=== PATIENT | male | born 1965 | race Caucasian/White ===

== ENCOUNTER 2018-01-31 09:43 | Emergency (ER) | payer OTHER, SELFPAY ==
[2018-01-31 09:49] VITALS: BP 159/101; PULSE 90; RESP 18; TEMP 36.6; O2SAT 98
--- NOTE | 2018-01-31 10:34 | ED.GENADUL_ITS ---
Disposition Clinical Impression: Laceration of right ring finger Disposition: HOME Condition: Stable Instructions: Finger Laceration (ED), Care For Your Stitches (ED) Additional Instructions: Watch for any signs of infection and return immediately if these occur otherwise keep the dressing on for 24-48 hours and after that keep wound clean and dry with just mild soap and water. It is encouraged that you wear the splint for the next 7 days to prohibit additional tension being placed on the wound and stitches. You may return to the emergency department 7-10 days for suture removal. Referrals: [facility] Emergency Dept. [Outside] (Return to the emergency department 7-10 days for suture removal.) Forms: Work Release Medical Decision Making - Medical Decision Making Patient presenting to the emergency department for laceration to the dorsal aspect of the ring finger. There is a 1.2 cm laceration with moderate amount of bleeding that corresponds with the DIP. Patient has full range of motion and strength in the extremity so doubt any tendon injury. Patient gave verbal consent for wound repair and digital block. Wound was explored to base in bloodless field and no evidence of foreign body was noted but moderate amount of bleeding so suspect venous injury. Finger tourniquet was applied prior to evaluating the wound. Wound was closed with 4-0 Prolene and 3 simple interrupted sutures were used to close the wound. Appropriate hemostasis was achieved using this technique. Finger tourniquet removed and continued hemostasis was achieved. Patient's tetanus was up-to-date and patient tolerated procedure well. Patient was placed in a foam metal splint to prohibit flexion of the PIP of the affected digit to reduce tension on the stitches. Patient encouraged to return in's 7-10 days for suture removal. After discussion of diagnosis and plan of care with patient patient agreed and stated no further needs, questions, or concerns at this time. History of Present Illness - General Chief complaint: Laceration Stated complaint: RT FINGER LACERATION Time Seen by Provider: 01/31/18 10:32 Source: patient, RN notes reviewed Mode of arrival: ambulatory Limitations: no limitations - History of Present Illness Initial comments: Patient reports just prior to arrival he was moving her toes that had metal strapping on it and accidentally lacerated the first knuckle on the right ring finger. Patient denies any other injury or trauma. Onset/Timin -: minutes(s) Location: right, upper extremity Severity scale (1-10): 2 Quality: aching Consistency: constant Improves with: none Worsens with: none Associated Symptoms: denies other symptoms Treatments Prior to Arrival: none - Related Data Unknown [No Known Home Meds] 08/04/17 Allergies Allergy/AdvReac Type Severity Reaction Status Date / Time codeine AdvReac Unknown from Unverified 01/31/18 09:52 childhood Review of Systems Constitutional: no symptoms reported Respiratory: no symptoms reported Cardiovascular: denies: syncope Skin: as per HPI Comment: All other systems reviewed and negative Past Medical History - Past Medical History Medical history: GERD Surgical history: other (Back surgery) Family history: CAD/LA, cancer, diabetes - Social History Smoking status: current everyday smoker Alcohol use: none Drug use: none Living Situation: lives with family General Exam - General Limitations: no limitations General appearance: alert, in no apparent distress - Head Head exam: Present: atraumatic - Respiratory Respiratory exam: Absent: respiratory distress - Expanded Upper Extremity Exam Right Hand Wrist exam: Present: full ROM, laceration (Patient has approximately a 1.2 cm flap laceration to the dorsal aspect of the PIP with moderate amount of bleeding.). Absent: deformity Neurosensory exam: Present: 2-point discrimination Vascular: Present: normal capillary refill - Neurological Exam Neurological exam: Present: alert, oriented X3, normal gait. Absent: altered Course Vital Signs - 24 hr 01/31/18 09:49 Temperature 36.6 C Pulse 90 Respiratory 18 Rate Blood Pressure 159/101 Pulse Oximetry 98 Procedures - Laceration Repair Consent Obtained: Verbal consent Copious Irrigation performed: Yes Laceration Length (cm): 1.2 Laceration Depth: Subcutaneous Bleeding Type/Amount: Moderate Complexity: Simple Anesthetic: Digital Block, Lidocaine 2% Amount of Anesthetic (mls): 4 Material: Proline Suture Size: 4-0 Suture Number: 3
== END 2018-01-31 10:54 | disposition home or self-care (01) ==
PROVIDERS: Emergency Provider Physician Assistant; PCP Family Medicine
DX: S61.214A Laceration without foreign body of right ring finger without damage to nail, initial encounter (principal); W26.8XXA Contact with other sharp object(s), not elsewhere classified, initial encounter
CPT/HCPCS: 12001

== ENCOUNTER 2018-11-28 23:31 | Emergency (ER) | payer OTHER, SELFPAY ==
--- NOTE | 2018-11-28 00:15 | DI.CT_ITS ---
SYMPTOMS/DIAGNOSIS: RT FLANK PAIN RENAL COLIC CT: Comparison 07/21/17. There is patient motion artifact. Lack of IV contrast does limit evaluation of the abdominal and pelvic organs. The unenhanced liver, spleen, pancreas, gallbladder, bile ducts and adrenal glands are unremarkable. There is no evidence of nephrolithiasis, ureterolithiasis or obstructive uropathy. The urinary bladder is intact. The reproductive organs are unremarkable. The bowel shows no evidence of obstruction or inflammation. There is a normal appendix present. The aorta is of normal caliber. No significant abdominal or pelvic adenopathy, ascites or pneumoperitoneum is present. Incidental note is made of a retroaortic left renal vein. Post surgical changes and degenerative changes are seen in the spine. IMPRESSION: No acute abnormality. No evidence of nephrolithiasis or obstructive uropathy.
[2018-11-28 23:34] VITALS: BP 146/93; PULSE 87; RESP 20; TEMP 36.6; O2SAT 96
--- NOTE | 2018-11-28 23:49 | ED.GENADUL_ITS ---
Discharge Plan Disposition Patient Disposition: HOME Condition: Stable Discharge Details Chief Complaint: Nk/Back Pain Clinical Impression: Back pain, Flank pain Primary Care Provider: Raffy Aguirre ED Provider: Oswald Brennan Home Meds and New Rx's Prescriptions: New diazepam [Valium] 5 mg tablet 5 mg PO TID-QID PRN (Reason: muscle spasm) Qty: 20 RF: 0 Continued calcium carbonate 400 mg Tablet,Chewable 400 mg PO TID PRNRF: 0 ibuprofen 600 mg Tablet 600 mg PO TID PRNRF: 0 Discharge Instructions Instructions: Diazepam (By mouth), Back Pain (ED) Additional Instructions: follow up with your primary care provider within 1-2 weeks if you have severe worsening symptoms or new symptoms such as high fevers or difficulty urinating return to the emergency department Medical Decision Making 53 yo male with hx of prior back pain and kindey stones comes in with chief complaint of mid to lower back pain starting on Tuesday when he woke up, denies any known trauma or falls. Has pain throughout the lumbar region bilaterally, no midline pain or stepoffs, no saddle anesthesia, no weakness on exam or sensation deficits so doubt cauda equina and denies ivdu and no fevers/chills so doubt sea at this time. I suspect muscle spasm/back strain but will image to eval for kidney stone. Has no abdominal tenderness on exam so doubt appendicitis or other surgical pathology. Normal vascular exam so doubt aortic dissection pt remains stable, feels better after toradol and valium, labs and imaging unremarkable. Still reassuring neuro exam. Suspect musculoskeletal pain, will d/c and have him f/u with his pcp, return precautions given Differential Diagnosis muscle spasm, back strain, kidney stone Medical Records Medical records reviewed: Yes I reviewed the patient's medical records. Imaging Data Radiologic Study: Attestation: I personally reviewed and interpreted this imaging study as follows: Imaging: CT Scan My impression: no acute findings Radiologist's impression: IMPRESSION: 1. No hydronephrosis. No renal ureteral calculi. Please note the lack of IV contrast limits evaluation of the renal parenchyma for pyelonephritis. 2. Normal appendix. 3. No evidence for bowel obstruction or bowel wall thickening. Lab Data Lab results reviewed: Yes I reviewed the patient's lab results. HPI General Mode of arrival: ambulatory . Date/Time Provider Initiated Documentation: 11/28/18 23:31 . Limitations to Documentation: no limitations . Information obtained by: patient . History of Present Illness 53 year old M presents to the emergency department with the chief complaint of back pain, described as moderate, Quality is described as stabbing and aching, and is localized to the back. Patient abdomen. and it has been constant. No relieving factors improve symptom(s), No exacerbating factors reported . Patient notes no other symptoms.. Patient did receive the following treatments prior to arrival, NSAID Related Data Home Medications Medication Instructions Recorded Confirmed calcium carbonate 400 mg PO TID PRN 11/28/18 11/28/18 ibuprofen 600 mg PO TID PRN 11/28/18 11/28/18 diazepam [Valium] 5 mg PO TID-QID PRN #20 tab 11/29/18 Previous Rx's Medication Instructions Recorded diazepam [Valium] 5 mg PO TID-QID PRN #20 tab 11/29/18 Allergies Allergy/AdvReac Type Severity Reaction Status Date / Time codeine AdvReac Unknown from Unverified 11/28/18 23:38 childhood Review of Systems Review of Systems All systems reviewed & are unremarkable except as noted in HPI and below Constitutional Denies chills and Denies fever(s) Cardiovascular Denies chest pain and Denies dyspnea Respiratory Denies cough and Denies dyspnea Gastrointestinal Denies nausea and Denies vomiting Genitourinary Denies dysuria Integumentary/Breasts Denies rash PFSH Surgical History BACK SURGERY Family History Mother No problems noted. Father No problems noted. Sister No problems noted. Brother No problems noted. Grandfather Heart disease Grandfather No problems noted. Grandmother No problems noted. Grandmother Diabetes Social History Smoking/Tobacco Use Status: Current every day Tobacco Type: cigarettes Alcohol Intake: never Drug use: Never Substance use type: does not use Do you feel safe in your relationship?: Yes Exam Const General: no acute distress Orientation: alert HENMT Head: normal to inspection Ears: external ears normal General nose exam: external nose normal Mouth: moist mucous membranes Eyes General: appearance normal, both eyes and all related structures Neck Neck: normal visual inspection Resp Effort & Inspection: normal respiratory effort and able to speak in complete sentences Cardio Rate: regular rate Back/Spine/Pelvis Back: no CVA tenderness Skin General skin exam: no rashes or lesions noted Neuro General: alert and oriented x3 Extrem General: normal to inspection Psych Mental Status: mental status grossly normal
[2018-11-28] MEDS: Normal Saline Flush 10 ML SYR IVP (23:50)
[2018-11-28] MEDS: Ketorolac 15 MG/ML VIAL IVP (23:50)
[2018-11-29] VITALS (8 sets, daily range): BP systolic 132–135; BP diastolic 82–92; PULSE 78–88; RESP 12–25; TEMP 36.2; O2SAT 92–94
[2018-11-29 00:02] LABS: Abs Immature Grans 0.03 k/cumm (0.0-0.09); Absolute Basophil Count 0.04 k/cumm (0.0-0.2); Absolute Eosinophil Count 0.42 k/cumm (0.0-0.7); Absolute Lymphocyte Count 2.73 k/cumm (1.2-3.4); Absolute Monocyte Count 0.66 k/cumm (0.11-0.7); Absolute Neutrophil Count 5.06 k/cumm (1.2-6.7); Basophils % 0.4; Eosinophils % 4.7; HCT 44.5 % (40.0-50.0); HGB 15.4 g/dL (13.5-17.5); Immature Grans % 0.3; Lymphocytes % 30.5; Mean Corp. HGB Concentration 34.6 g/dL (32.0-36.0); Mean Corpuscular Hemoglobin 31.2 pg (27.0-33.0); Mean Corpuscular Volume 90.3 fL (80-95); Mean Platelet Volume 12.3 fL (8.0-11.0); Monocytes % 7.4; Neutrophils % 56.7; Platelet Count 145 x1000/uL (130-400); RBC 4.93 m/cumm (4.50-6.00); RBC Distribution Width 13.8 % (11.8-14.1); White Blood Cell Count 8.94 k/cumm (4.4-10.8)
[2018-11-29 00:15] LABS: ALT 28 U/L (12-78); AST 13 U/L (15-37); Albumin 3.8 g/dL (3.4-5.0); Alkaline Phosphatase 73 U/L (46-116); Anion Gap 9.4 mmol/L (3-11); BUN 16 mg/dL (7-18); Bilirubin, Total 0.3 mg/dL (0.2-1.0); CO2 26.6 mmol/L (21.0-32.0); CREATININE 1.24 mg/dL (0.70-1.30); Calcium 8.7 mg/dL (8.5-10.1); Chloride 104 mmol/L (98-107); Glucose 129 mg/dL (70-100); Lipase 73 U/L (73-393); Magnesium 2.2 mg/dL (1.8-2.4); Potassium 3.8 mmol/L (3.5-5.1); Sodium 140 mmol/L (136-145); Total Protein 7.5 g/dL (6.4-8.2)
[2018-11-29 00:25] LABS: PTT Activated 26.6 sec (21.0-31.4); Prothrombin Time 9.5 sec (9.3-11.0)
[2018-11-29] MEDS: diazePAM 10 MG/2 ML SYR 5 MG IVP (00:30)
[2018-11-29] MEDS: Normal Saline Flush 10 ML SYR IVP (00:31)
--- NOTE | 2018-11-29 01:03 | DI.VRAD_ITS ---
EXAM: CT Abdomen and Pelvis Without Contrast EXAM DATE/TIME: 11/28/2018 11:36 PM CLINICAL HISTORY: 53 years old, male; Abdominal pain; Right; Prior surgery; Surgery date: 6+ months; Surgery type: Back surgery; Patient HX: R flank pain TECHNIQUE: Imaging protocol: Axial computed tomography images of the abdomen and pelvis without contrast. Coronal and sagittal reformatted images were created and reviewed. Radiation optimization: All CT scans at this facility use at least one of these dose optimization techniques: automated exposure control; mA and/or kV adjustment per patient size (includes targeted exams where dose is matched to clinical indication); or iterative reconstruction. COMPARISON: CT ABD/PELVIS WO W CONTRAST 07/21/2017 10:05 AM FINDINGS: There is minimal atelectasis within the lung bases. There are degenerative changes and postop changes of the spine. There are degenerative changes of both hips. There is no liver mass. There is no intrahepatic biliary dilatation. No gallstones are seen within the gallbladder. The pancreas is unremarkable. The spleen is unremarkable. There is no adrenal mass. There is no hydronephrosis. There are no renal calculi. There is mild symmetric perinephric stranding. There is no renal mass. The ureters are normal in caliber. No calculi are seen along the course of the ureters. The aorta is normal in caliber. The IVC is normal in caliber. Small retroperitoneal lymph nodes are present. There is no mesenteric adenopathy. The stomach is unremarkable. The small bowel loops in the upper abdomen are nondistended with no bowel wall thickening. Feces is seen throughout the colon. There is no thickening of the wall of the ascending, transverse or descending colons. Within the pelvis: A normal appendix is seen within the right lower quadrant. The bladder is unremarkable. The prostate gland and seminal vesicles are normal. There is no free fluid within the pelvis. There is no inguinal adenopathy. There is no pelvic adenopathy. The bowel loops within the pelvis are unremarkable. IMPRESSION: 1. No hydronephrosis. No renal ureteral calculi. Please note the lack of IV contrast limits evaluation of the renal parenchyma for pyelonephritis. 2. Normal appendix. 3. No evidence for bowel obstruction or bowel wall thickening. Dictated and Authenticated by: Jose Alejandro Ivory MD. Ordering:MELLO Akers MD
[2018-11-29] MEDS: diazePAM 5 MG TAB 10 MG PO (01:07)
== END 2018-11-29 01:12 | disposition home or self-care (01) ==
LOC: ER 11-29 01:27
PROVIDERS: Emergency Provider Emergency Medicine; PCP Family Medicine
DX: R10.9 Unspecified abdominal pain (principal); M54.5 Low back pain; Z87.440 Personal history of urinary (tract) infections
CPT/HCPCS: 36415; 80053; 83690; 96374; 96375; 99284; 74176; 83735; 85025; 85610; 85730; J1885; J3360

== ENCOUNTER 2020-01-02 08:55 | Emergency (ER) | payer OTHER, SELFPAY ==
[2020-01-02 09:01] VITALS: BP 165/88; PULSE 89; RESP 16; TEMP 36.7; O2SAT 98
--- NOTE | 2020-01-02 09:12 | ED.GENADUL_ITS ---
Discharge Plan Disposition Patient Disposition: HOME Condition: Stable Discharge Details Chief Complaint: Nk/Back Pain Clinical Impression: Strain of muscle and tendon of back wall of thorax, initial encounter Primary Care Provider: Raffy Aguirre ED Provider: Andrez Peace Home Meds and New Rx's Prescriptions: Continued calcium carbonate 400 mg Tablet,Chewable 400 mg PO TID PRNRF: 0 Discharge Instructions Instructions: Muscle Strain (ED) Additional Instructions: Remove Lidoderm patch in 12 hours time. May apply ice and/or heat to area as needed for comfort. No further ibuprofen today. May use Tylenol if needed for pain. May use the provided Flexeril as needed for spasm and discomfort. No alcohol or driving with this medication. Medical Decision Making 54-year-old male states he had acrid reflux while asleep early in bed this morning and awoke with a spasmodic cough. He states this does happen to him intermittently. While coughing he felt a pull in his right posterior back and is had pain since that time. No resting shortness of breath. He was not injured in any other way and has otherwise recently been well. He arrives with slight hypertension 165/88 but otherwise normal vital signs. He is tender in the posterior thoracic wall. Differential diagnosis includes muscle strain, cartilaginous disruption, pneumothorax or ruptured bleb, fractured rib. Patient given oral analgesia with Mylanta and referred for x- ray. No evidence of rib fracture, pneumothorax, or pleural effusion. Patient re quested Toradol which I feel is very reasonable and appropriate and was given an IM injection. We also try Flexeril x1 at home. HPI General Mode of arrival: ambulatory . Date/Time Provider Initiated Documentation: 01/02/20 08:56 . Limitations to Documentation: no limitations . Information obtained by: patient . History of Present Illness 54 year old M presents to the emergency department with the chief complaint of Right posterior chest wall pain after coughing fit, described as moderate, Quality is described as dull and constant, and is localized to the chest and right. Patient reports radiation to back. Patient started experiencing this hour(s) and it has been constant. No relieving factors improve symptom(s), Movement worsens symptoms . Patient notes denies fever/chills, loss of appetite and shortness of breath. Patient did receive the following treatments prior to arrival, none Related Data Home Medications Medication Instructions Recorded Confirmed calcium carbonate 400 mg PO TID PRN 11/28/18 01/02/20 Allergies Allergy/AdvReac Type Severity Reaction Status Date / Time codeine AdvReac Unknown from Unverified 01/02/20 09:04 childhood General Stated Complaint: Nk/Back Pain AUGUST: 3 Review of Systems Narrative: No shortness of breath. States he has had episodes of reflux in the past that have caused a spasmodic cough. 6 systems reviewed and otherwise negative [facility] BACK SURGERY 1999; [facility] Family History Mother No problems noted. Father No problems noted. Sister No problems noted. Brother No problems noted. Grandfather Heart disease Grandfather No problems noted. Grandmother No problems noted. Grandmother Diabetes Social History Smoking/Tobacco Use Status: Current every day Tobacco Type: cigarettes Alcohol Intake: never Drug use: Never Substance use type: does not use Do you feel safe in your relationship?: Yes Exam Narrative Exam Narrative: GEN: awake, alert, oriented 3. Pleasant, well groomed, interactive. HEAD: Normocephalic, atraumatic ENT: Mucous membranes moist, oropharynx unremarkable, External ear exam unremarkable EYES: PERRL, EOMI NECK: Full ROM, no BERTO, no menigismus CHEST/RESP: Nontender, clear to auscultation bilateral, no wheeze/rhonchi/rales CARDIOVASCULAR: RRR, no murmur, rub angle. 2+ Rad pulse bilateral ABDOMEN: Soft, nontender, no mass. +Bowel sounds. Back: Right posterior thoracic cage level tenderness to palpation. No crepitus. EXT: Full ROM, no edema, no rash Neuro: Grossly normal neurologic exam, conversant, interactive. Psych: Speech fluent, thoughts congruent, affect normal Course Vital Signs Vital signs: Vital Signs Temperature 36.7 C 01/02/20 09:01 Pulse 89 01/02/20 09:01 Respiratory Rate 16 01/02/20 09:01 Blood Pressure 165/88 H 01/02/20 09:01 Pulse Oximetry 98 01/02/20 09:01 Temperature 36.7 C 01/02/20 09:01 Temperature Source Skin 01/02/20 09:01 Pulse 89 01/02/20 09:01 Respiratory Rate 16 01/02/20 09:01 Respiratory Effort Non-Labored 01/02/20 09:01 Blood Pressure 165/88 H 01/02/20 09:01 Blood Pressure Position Sitting 01/02/20 09:01 Pulse Oximetry 98 01/02/20 09:01 Oxygen Delivery Method Room Air 01/02/20 09:01 Oxygen Flow Rate 0 01/02/20 09:01 Pain Level 5 01/02/20 09:08
[2020-01-02] MEDS: Ibuprofen 800 MG TAB PO (09:17)
[2020-01-02] MEDS: Mylanta Suspension 30 ML CUP PO (09:17)
--- NOTE | 2020-01-02 09:35 | DI.RAD_ITS ---
EXAM: XR RIBS RT W PA LAT CHEST CLINICAL HISTORY: lower pos pain after cough fit TECHNIQUE: COMPARISON: CR CHEST 2 VIEWS PA,LAT from 06/27/[address] renal colic wo from 11/29/2018 FINDINGS: PA and lateral views of the chest and 5 additional views of ribs were obtained. The heart is not enl arged and the lungs are clear. No pneumothorax or pleural effusion. No rib fracture identified. Note is made of Villatoro rods at the L4-5 level bilaterally. IMPRESSION: No rib fracture, pneumothorax, or pleural effusion.
[2020-01-02] MEDS: Lidocaine 5% Patch 1 PATCH TP (09:37)
[2020-01-02] MEDS: Ketorolac 30 MG/ML VIAL IM (09:52)
[2020-01-02] MEDS: Cyclobenzaprine 10 MG TAB, 3 TABS/BTL PO (09:53)
== END 2020-01-02 10:01 | disposition home or self-care (01) ==
PROVIDERS: Emergency Provider Emergency Medicine; PCP Family Medicine
DX: S29.012A Strain of muscle and tendon of back wall of thorax, initial encounter (principal); X50.9XXA Other and unspecified overexertion or strenuous movements or postures, initial encounter; K21.9 Gastro-esophageal reflux disease without esophagitis
CPT/HCPCS: 96372; 99284; 71046; 71100; J1885

== ENCOUNTER 2020-04-01 15:37 | Outpatient (REF) | payer OTHER, SELFPAY ==
[2020-04-01 21:16] LABS: HGB 15.8 g/dL (13.5-17.5); MCH 30.5 pg (27.0-33.0); MCHC 32.9 % (32.0-36.0); MCV 92.7 fL (80-95); MPV 12.6 fL (8.0-11.0); Platelet Count 150 10^3/uL (130-400); RBC 5.18 10^6/uL (4.36-5.78); RDW 13.2 % (11.8-14.1)
[2020-04-01 22:37] LABS: Calculated LDL 162 mg/dL (<100); Cholesterol 240 mg/dL (<200); Glucose 100 mg/dL (74-106); HDL Cholesterol 32 mg/dL (40-60); Triglyceride 230 mg/dL (<150)
== END 2020-04-01 15:57 ==
LOC: LBN 15:37
PROVIDERS: PCP Family Medicine; Visit Provider Family Medicine
DX: E78.5 Hyperlipidemia, unspecified (principal); R73.9 Hyperglycemia, unspecified
CPT/HCPCS: 80061; 82947; 85027

== ENCOUNTER 2023-03-23 00:54 | Emergency (ER) | payer BC, SELFPAY ==
[2023-03-23 00:57] VITALS: BP 165/89; PULSE 90; RESP 16; TEMP 36.9; O2SAT 99
--- NOTE | 2023-03-23 01:00 | DI.CT_ITS ---
Exam(s) CT ABDOMEN PELVIS W EXAM: CT ABDOMEN PELVIS W CLINICAL HISTORY: llq pain rectal pain, ?diverticulitis vs abscess. TECHNIQUE: Imaging Protocol: Axial computed tomography images with coronal and sagittal reformatted images were created and reviewed CONTRAST MATERIAL: Intravenous: Omnipaque-350 100cc Oral: None COMPARISON: CT CT renal colic wo from 11/29/2018 FINDINGS: VISUALIZED LUNG BASES: No nodules nor pleural effusions evident. ABDOMEN: There is no ascites. LIVER: There are no focal hepatic lesions evident. No dilated intrahepatic ducts. GALLBLADDER/BILIARY: No obvious gallbladder pathology. CBD is not dilated. PANCREAS: No evidence of pancreatic mass nor dilatation of the pancreatic duct. SPLEEN: Spleen is not enlarged. No obvious intrasplenic lesions. Splenic and portal veins are paten t. ADRENALS: Unchanged thickening of both adrenal glands and small unchanged nodule at the genu of the l eft adrenal gland measuring 1 cm probable adenoma. KIDNEYS:Small benign cyst in the lateral cortex of the left kidney measuring less than 1 cm. Not req uiring further workup. No other focal findings in the left kidney. Right renal pelvis and infundibu lar slightly prominent. Right ureter is not dilated. No calculi seen in either ureter. No calculi nor masses seen in the urinary bladder. Prostate size normal. No solid renal masses. No calculi no r hydronephrosis.. ABDOMINAL AORTA: Atherosclerotic. There is a fusiform infrarenal abdominal aortic aneurysm which exh ibits maximum diameter of 3.4 cm, unchanged. A at the same level as the aneurysm there is a retroaor tic left renal vein again noted. No aneurysms of the iliac vessels evident. LYMPH NODES:There is no retroperitoneal nor paraaortic adenopathy. ABDOMINAL WALL: No evidence of significant anterior abdominal wall nor inguinal hernia. GI: There is no evidence of bowel obstruction, free air, nor abscess. PELVIS: GI: No evidence of appendicitis.No evidence of sigmoid diverticulitis. LYMPH NODES: There is no intrapelvic nor inguinal adenopathy. REPRODUCTIVE: Prostate not enlarged. URINARY BLADDER: No calculi nor obvious masses evident OSSEOUS: There is fusion hardware in the lower lumbar spine levels L4-S1. Secured by intra pedicular screws. No fractures. No osseous lesions. No evidence of osteomyelitis. IMPRESSION: 1. No obvious acute findings in the abdomen and pelvis. 2. Slight prominence of the right renal pelvis and infundibulum I without evidence of an obvious calc ulus in the nondilated right ureter nor evidence of nephrolithiasis. Also no abnormal enhancement of the kidney nor of the renal pelvis to suggest obvious inflammatory pr ocess. No perinephric streaking. 3. Small 1 cm unchanged left adrenal nodule which is probably an incidental adenoma. Slight thickeni ng of the limbs of both adrenal glands is also unchanged. 4. Fusiform abdominal aortic aneurysm again noted with maximum diameter 3.4 cm. There is a retroaort ic left renal vein noted just behind the aneurysm level. RADIATION DOSE DELIVERED: 1,550.42mGy.cm Total DLP DATA REPOSITORY: All CT scans at this facility are submitted to the National Radiology Data Registry (NRDR) Dose Index Registry (DIR) with the [employer] (A[employer]). RADIATION OPTIMIZATION: All CT scans at this facility use at least one of these dose optimization te chniques: automated exposure control; mA and/or kV adjustment per patient size (includes targeted exa ms where dose is matched to clinical indication); or iterative reconstruction.
--- NOTE | 2023-03-23 01:14 | ED.GENADUL_ITS ---
Discharge Plan Disposition Patient Disposition: Home Condition: Stable Discharge Details Clinical Impression: External hemorrhoid, Abdominal pain Primary Care Provider: Raffy Aguirre ED Provider: Oswald Brennan Home Meds and New Rx's Prescriptions: New lidocaine HCl-hydrocortison ac 3-0.5 % cream 1 applic AK BID PRN (Reason: hemorrhoids) Qty: 98 0RF Continued docusate sodium [Colace] 100 mg capsule 100 mg PO BID Qty: 180 3RF calcium carbonate 400 mg Tablet,Chewable 400 mg PO TID PRN Discharge Instructions Instructions: Hemorrhoids (ED) Additional Instructions: I placed you on the follow up list to see general surgery, you should be contacted with an appointment you can take miralax with the colace, follow dosing instructions on the packaging if you feel more ill, have severe worsening pain or new symptoms such as fevers or vomiting return to the emergency department Medical Decision Making 58 yo male who was diagnosed with an external hemorrhoid in January and placed on docusate, stopped taking this about a week ago, comes in with cc of rectal pain for several days and constipation. HAs had intermittent lower abdominal pain as well primarily with bowel movements. He denies chest pain, dyspnea, vomiting, fevers. He is stable on arrival and appears well. HAs mild tenderness in the llq with deep palpation, no guarding or distention and no tenderness elsewhere. HE does have an approximately 5mm nonthrombosed hemorrhoid at the 5 oclock position, no bleeding and guiac negative stool. Suspect the hemorrhoid and constipation are the cause of his symptoms, will obtain cbc, cmp and lipase and ct abdomen to primarily evaluate for diverticulitis as well. labs and imaging unremarkable, pt stable, will have him continue the colace and can also use miralax, will place on the follow up list to see general surgery. No abdominal tenderness on exam. STable for d/c, return precautions given. Differential Diagnosis Differential Diagnosis: diverticulitis, hemorrhoid, abscess Medical Records Medical records reviewed: Yes I reviewed the patient's medical records. Lab Data Lab results reviewed: Yes I reviewed the patient's lab results. HPI General Mode of arrival: ambulatory . Date/Time Provider Initiated Documentation: 03/23/23 00:54 . Limitations to Documentation: no limitations . Information obtained by: patient . History of Present Illness 58 year old M presents to the emergency department with the chief complaint of rectal pain, described as moderate, Quality is described as aching, Patient started experiencing this day(s) (3) and it has been constant. No relieving factors improve symptom(s), No exacerbating factors reported . Related Data Home Medications Medication Instructions Recorded Confirmed calcium carbonate 160 mg calcium 400 mg PO TID PRN 11/28/18 03/23/23 (400 mg) chewable tablet docusate sodium 100 mg capsule 100 mg PO BID #180 caps 01/28/23 03/23/23 (Colace) lidocaine 3 %-hydrocortisone 0.5 % 1 applic AK BID PRN hemorrhoids 03/23/23 rectal cream #98 grams Previous Rx's Medication Instructions Recorded docusate sodium 100 mg capsule 100 mg PO BID #180 caps 01/28/23 (Colace) lidocaine 3 %-hydrocortisone 0.5 % 1 applic AK BID PRN hemorrhoids 03/23/23 rectal cream #98 grams Allergies Allergy/AdvReac Type Severity Reaction Status Date / Time codeine AdvReac Unknown from Verified 03/23/23 01:04 childhood General Stated Complaint: Urinary AUGUST: 3 Review of Systems All systems reviewed & are unremarkable except as noted in HPI and below Constitutional Constitutional: Denies chills, Denies fever(s) and Denies weakness Cardiovascular Cardiovascular: Denies chest pain and Denies dyspnea Respiratory Respiratory: Denies cough and Denies dyspnea Gastrointestinal Gastrointestinal: Denies nausea and Denies vomiting Integumentary/Breasts Skin/Breast: Denies rash Neurologic Neurologic: Denies weakness PFSH All Active Problems (Updated 03/23/23 @ 02:45 by Oswald Brennan MD) External hemorrhoid (Acute) Abdominal pain (Acute) Sensorineural hearing loss of both ears (Acute) Tinnitus (Acute) Viral URI (Acute) Tobacco abuse (Acute) Erythrocytosis (Acute) Otitis media, serous, TM rupture (Acute) Hyperlipidemia with target LDL less than 130 (Acute) Calculus of left kidney (Acute 07/21/17) Microscopic hematuria (Acute 07/27/17) 08/04/17; NEGATIVE CYSTOSCOPY;[facility] Reflux esophagitis (Acute) EGD 11/25/14 Surgical History BACK SURGERY 1999; [facility] Family History Mother No problems noted. Father No problems noted. Sister No problems noted. Brother No problems noted. Grandfather Heart disease Grandfather No problems noted. Grandmother No problems noted. Grandmother Diabetes Social History Smoking/Tobacco Use Status: Current every day Tobacco Type: cigarettes Smoking risk assessment performed?: Yes Alcohol Intake: never Drug use: Never Substance use type: does not use Do you feel safe in your relationship?: Yes Exam Const General: no acute distress Orientation: alert HENMT Head: normal to inspection Ears: external ears normal General nose exam: external nose normal Mouth: moist mucous membranes Eyes General: appearance normal, both eyes and all related structures Neck Neck: normal visual inspection Resp Effort & Inspection: normal respiratory effort and able to speak in complete sentences Cardio Rate: regular rate GI Palpation: soft and tender Skin General skin exam: no rashes or lesions noted Neuro General: patient alert and patient oriented x3 Extrem General: normal to inspection Psych Mental Status: mental status grossly normal Course Vital Signs Vital signs: Vital Signs Temperature 36.9 C 03/23/23 00:57 Pulse 90 03/23/23 00:57 Respiratory Rate 16 03/23/23 00:57 Blood Pressure 165/89 H 03/23/23 00:57 Pulse Oximetry 99 03/23/23 00:57 Temperature 36.9 C 03/23/23 00:57 Pulse 90 03/23/23 00:57 Respiratory Rate 16 03/23/23 00:57 Respiratory Effort Normal 03/23/23 01:06 Blood Pressure 165/89 H 03/23/23 00:57 Pulse Oximetry 99 03/23/23 00:57 Oxygen Delivery Method Room Air 03/23/23 00:57 Oxygen Flow Rate 0 03/23/23 00:57 Pain Level 8 03/23/23 00:57
[2023-03-23 01:20] LABS: Abs Immature Grans 0.06 10^3/uL (0.0-0.06); Absolute Basophil Count 0.06 10^3/uL (0.0-0.2); Absolute Eosinophil Count 0.18 10^3/uL (0.0-0.7); Absolute Lymphocyte Count 1.98 10^3/uL (1.2-3.4); Absolute Neutrophil Count 9.27 10^3/uL (1.2-6.7); Basophils % 0.5; Eosinophils % 1.4; HCT 44.4 % (40.0-50.0); HGB 15.1 g/dL (13.5-17.5); Immature Grans % 0.5; Lymphocytes % 15.8; MCH 30.6 pg (27.0-33.0); MCV 90 fL (80-95); Neutrophils % 73.8; Platelet Count 184 10^3/uL (130-400); RBC 4.94 10^6/uL (4.36-5.78); RDW-SD 42.6 fL; WBC 12.56 10^3/uL (4.4-10.8)
[2023-03-23] MEDS: Lidocaine 4% Cream 5 GM TUBE TP (01:35)
[2023-03-23] MEDS: Docusate Sodium 100 MG CAP PO (01:35)
[2023-03-23 01:38] LABS: ALT 23 U/L (16-63); AST 15 U/L (15-37); Albumin 3.7 g/dL (3.4-5.0); Alkaline Phosphatase 70 U/L (46-116); Anion Gap 8.6 mmol/L (3-11); BUN 13 mg/dL (7-18); Bilirubin, Total 0.5 mg/dL (0.2-1.0); CO2 24.4 mmol/L (21.0-32.0); CREATININE 1.1 mg/dL (0.70-1.30); Calcium 8.7 mg/dL (8.5-10.1); Chloride 105 mmol/L (98-107); Estimated GFR 76.85 (mL/min/1.73m2); Glucose 144 mg/dL (74-106); Lipase 18 U/L (16-77); Magnesium 2.2 mg/dL (1.8-2.4); Sodium 138 mmol/L (136-145); Total Protein 6.9 g/dL (6.4-8.2)
[2023-03-23] MEDS: Normal Saline Flush 10 ML SYR IVP (01:47)
[2023-03-23] MEDS: Omnipaque 350 MG/ML 100 ML BTL IJ (01:53)
[2023-03-23] MEDS: Normal Saline - Diluent 50 ML VIAL IJ (01:54)
[2023-03-23 02:29] LABS: Bilirubin Negative (Negative); Blood Negative (Negative); Clarity Clear (Clear); Glucose Negative (Negative); Ketones Negative (Negative); Leukocyte Esterase Negative (Negative); Nitrite Negative (Negative); Urobilinogen 0.2 mg/dL (Up to 0.2); pH 6.5 (5-8)
--- NOTE | 2023-03-23 03:08 | DI.VRAD_ITS ---
PROCEDURE INFORMATION: Exam: CT Abdomen And Pelvis With Contrast Exam date and time: 03/23/2023 1:58 AM Age: 58 years old Clinical indication: Abdominal pain; Localized; Left lower quadrant (llq); Prior surgery; Surgery date: 6+ months; Surgery type: Back surgery; Patient HX: Llq pain rectal pain, ? diverticulitis vs abscess TECHNIQUE: Imaging protocol: Computed tomography of the abdomen and pelvis with contrast. Radiation optimization: All CT scans at this facility use at least one of these dose optimization techniques: automated exposure control; mA and/or kV adjustment per patient size (includes targeted exams where dose is matched to clinical indication); or iterative reconstruction. Contrast material: OMNIPAQUE 350; Contrast volume: 100 ml; Contrast route: INTRAVENOUS (IV); COMPARISON: CT renal colic wo 11/29/2018 12:08 AM FINDINGS: Liver: Normal. No mass. Gallbladder and bile ducts: Normal. No calcified stones. No ductal dilation. Pancreas: Unremarkable. Spleen: Normal. Adrenal glands: Small isodense left adrenal nodules are indeterminate. In the absence of a history of malignancy, this is likely benign. Kidneys and ureters: Normal. No hydronephrosis. Stomach and bowel: Unremarkable. No bowel wall thickening or intestinal obstruction. Appendix: Normal appendix. Intraperitoneal space: Unremarkable. No pneumoperitoneum. No abscess. Vasculature: 3.4 cm abdominal aortic aneurysm. No rupture. No acute aortic syndrome. Lymph nodes: Unremarkable. Urinary bladder: Unremarkable as visualized. Reproductive: Unremarkable as visualized. Bones/joints: Unremarkable. No acute fracture. Soft tissues: Unremarkable. IMPRESSION: No acute findings. Dictated and Authenticated by: Gerald Chin MD. Ordering:MELLO Akers MD
[2023-03-23 03:21] VITALS: BP 165/75; PULSE 72; RESP 16; O2SAT 95
--- NOTE | 2023-03-23 03:21 | NUR.NOTE ---
Referral faxed to [facility] Surgical [facility] to f/u within a week for hemorrhoid.Nursing Note:
== END 2023-03-23 03:26 | disposition home or self-care (01) ==
PROVIDERS: Emergency Provider Emergency Medicine; PCP Family Medicine
DX: K59.00 Constipation, unspecified (principal); R33.9 Retention of urine, unspecified; N28.1 Cyst of kidney, acquired; I71.43 Infrarenal abdominal aortic aneurysm, without rupture; Z98.1 Arthrodesis status
CPT/HCPCS: 36415; 80053; 83690; 99285; 74177; 81003; 83735; 85025; 99284; J3490

== ENCOUNTER 2025-02-05 04:51 | Emergency (ER) | payer BC, SELFPAY ==
[2025-02-05 04:54] VITALS: BP 158/86; PULSE 76; RESP 18; TEMP 36.5; O2SAT 98
--- NOTE | 2025-02-05 04:54 | ED.GENADUL_ITS ---
Discharge Plan Disposition Patient Disposition: Home Condition: Stable Discharge Details Clinical Impression: Low back pain radiating to right lower extremity Primary Care Provider: Raffy Aguirre ED Provider: Gato Arroyo Home Meds and New Rx's Prescriptions: New lidocaine 5 % Adhesive Patch,Medicated 1 patch topical Q24H Qty: 10 0RF methocarbamol 500 mg tablet 1,000 mg PO TID Qty: 30 0RF morphine 15 mg tablet 15 mg PO BID PRN (Reason: severe pain (scale score 7-10)) Qty: 8 0RF Changed ibuprofen 200 mg tablet 600 mg PO TID Qty: 0 0RF Discharge Instructions Instructions: Low Back Pain ED, Opioids for Short-Term Treatment of Pain ED Additional Instructions: You were seen for low back pain that is radiating to the groin area and shooting down the leg. There seems to be a component of spasm as well as potentially nerve pain given the shooting pain, burning sensation. Please alternate acetaminophen 1 gram with ibuprofen 600 mg every 4 hours. Lidocaine patch as directed. Methocarbamol as needed for muscle spasms. Immediate release morphine for severe pain. Ice or heat whichever seems to help with the discomfort. Follow-up with primary care at the end of this week for recheck. Return to ED for any bladder or bowel dysfunction, numbness or weakness involving lower extremities, abdominal pain, fever, other concerns. Referrals: Raffy Aguirre MD [Primary Care Provider, Medicine] [facility] General Mode of arrival: ambulatory . Date/Time Provider Initiated Documentation: 02/05/25 04:54 . Limitations to Documentation: no limitations . Information obtained by: patient, RN notes reviewed and old records reviewed . HPI Narrative: Patient presenting to ED with low back pain radiating into the groin and down the leg. Patient started with left-sided back and hip pain. Now has right- sided back pain radiating into the groin and down the front of the leg. He has had prior back surgery. He denies any injury. Left side seems better at this point but right side is getting worse. Denies any bladder or bowel dysfunction. Denies any numbness or tingling. Sometimes feels like his leg is weak and kind of just gives out on the right. Denies any abdominal pain. Denies any testicular pain. Has been taking acetaminophen with last dose last night. Very difficult to get out of bed ambulate this morning. Related Data Home Medications ?Medication ?Instructions ?Recorded ?Confirmed ibuprofen 200 mg tablet 600 mg (3 x 200 mg) PO TID # 0 tabs 02/05/25 02/05/25 lidocaine 5 % topical patch 1 patch topical Q24H #10 e a 02/05/25 methocarbamol 500 mg tablet 1,000 mg (2 x 500 mg) PO T ID #30 02/05/25 tabs morphine 15 mg immediate release 15 mg PO BID PRN sada re pain 02/05/25 tablet (scale score 7-10) #8 tabs Previous Rx's ?Medication ?Instructions ?Recorded ibuprofen 200 mg tablet 600 mg (3 x 200 mg) PO TID # 0 tabs 02/05/25 lidocaine 5 % topical patch 1 patch topical Q24H #10 e a 02/05/25 methocarbamol 500 mg tablet 1,000 mg (2 x 500 mg) PO T ID #30 02/05/25 tabs morphine 15 mg immediate release 15 mg PO BID PRN sada re pain 02/05/25 tablet (scale score 7-10) #8 tabs Allergies Allergy/AdvReac Type Severity Reaction Status Date / Time codeine AdvReac Unknown from Verified 02/05/25 04:58 childhood General AUGUST: 3 Exam Narrative Exam Narrative: Const: Obese male in NAD. VS per triage. HEENT: NC/AT. Normal facial exam. Neck: Supple. Trachea midline. Lungs: Normal respiratory effort. GI: Soft/ND/NT. Back: No spinal tenderness. Tender along the lower lumbar area L > R. Neuro: A+O x 3. Normal speech, mentation. Cranial nerves II - XII grossly intact. No gross motor or sensory deficit; normal strength and sensation LE. Ext: No C/C/E. Normal passive range of motion of both hips and the. Tender with mid right groin. No adenopathy, no obvious hernia. Skin: No rash , Medical Decision Making Patient presenting with low back pain radiating to the groin and down the thigh on the right. Had been similar on the left but that is improved. Had difficulty getting out of bed and ambulating this morning. Symptoms have been ongoing for over a week. He has no bladder or bowel dysfunction. Sensation is intact. Strength is intact including the right lower extremity. There is some tenderness across the low back and he definitely seems to have some episodes of spasm. May be a component of nerve impingement given the radiation of pain though it does not specifically fit a dermatome. He has been using acetaminophen. Give IM injection of ketorolac and orphenadrine and reevaluate. Patient has not noticed significant improvement with ketorolac and orphenadrine. Lidocaine patch placed. Given an IM shot of morphine. Will need a work note. Prescriptions for pain and muscle relaxer sent to pharmacy. Follow up with PCP end of week if not improving. Return precautions provided. Medical Records Medical records reviewed: Yes I reviewed the patient's medical records. [facility] All Active Problems (Updated 02/05/25 @ 05:55 by Gato Arroyo MD) Low back pain radiating to right lower extremity (Acute) Anal fissure (Acute) Internal hemorrhoids (Acute) Sensorineural hearing loss of both ears (Acute) Tinnitus (Acute) Tobacco abuse (Acute) Erythrocytosis (Acute) Hyperlipidemia with target LDL less than 130 (Acute) Calculus of left kidney (Acute 07/21/17) Microscopic hematuria (Acute 07/27/17) 08/04/17; NEGATIVE CYSTOSCOPY;[facility] Reflux esophagitis (Acute) EGD 11/25/14 Surgical History BACK SURGERY 1999; [facility] Family History Mother No problems noted. Father No problems noted. Sister No problems noted. Brother No problems noted. Grandfather Heart disease Grandfather No problems noted. Grandmother No problems noted. Grandmother Diabetes Social History Smoking/Tobacco Use Status: Current every day Tobacco Type: cigarettes Smoking risk assessment performed?: Yes Alcohol Intake: never Drug use: Never Substance use type: does not use Current gender identity: female Do you feel safe in your relationship?: Yes
[2025-02-05] MEDS: Orphenadrine 60 MG/2 ML VIAL IM (05:11)
[2025-02-05] MEDS: Ketorolac 30 MG/ML VIAL IM (05:11)
[2025-02-05] MEDS: Lidocaine 5% Patch 1 PATCH TP (05:35)
[2025-02-05] MEDS: MORPHine 10 MG/ML VIAL 6 MG IM (05:57)
--- NOTE | 2025-02-05 09:52 | NUR.NOTE ---
Nursing Note: The pharmacist at [facility] called about a prescription that was sent in for Morphine for the patient. The RX was for Morphine 15 mg IR and they do not have that, they only have the E.R. I spoke with Dr Bowman and he gave a verbal to change from the immediate release to the extended release instead. The pharmacist changed what she needed to and is preparing to fill the prescription for the patient.
--- NOTE | 2025-02-05 10:33 | NUR.NOTE ---
Nursing Note: [facility] called back and said that the patient's insurance will not cover the morphine E.R. I got into the chart to see what the insurance was to make sure that Dr Bowman could prescribe something different. I transferred the phone call to Dr Bowman so that he could discuss other options for pain management for the patient.
--- NOTE | 2025-02-05 10:38 | W.ED.FU ---
Follow Up Plan: Contacted by patient's pharmacy that insurance would not cover extended release morphine and they do not have immediate release morphine on their formulary. As such we will plan to prescribe oxycodone 10 mg twice daily as needed x 20 tablets for further management.
== END 2025-02-05 06:19 | disposition home or self-care (01) ==
LOC: ER 06:19
PROVIDERS: Emergency Provider Emergency Medicine; PCP Family Medicine
DX: M79.604 Pain in right leg (principal); M54.50 Low back pain, unspecified
CPT/HCPCS: 99283; 99284; 96372; J2360; J1885; J2270

== ENCOUNTER 2025-02-21 11:02 | Outpatient (CLI) | payer BC, SELFPAY ==
--- NOTE | 2025-02-21 06:45 | DI.RAD_ITS ---
Exam(s) XR HIP PELVIS ADULT BL EXAM: XR HIP PELVIS ADULT BL CLINICAL HISTORY: bilat hip pain,M25.551,M25.552,RT AND LT HIP PAIN. TECHNIQUE: 2D digital imaging was performed. Three views. COMPARISON: No exams were available for comparison FINDINGS: BONES: No acute fracture is present. No bony destructive lesion is seen. There is fusion hardware at the lumbosacral junction. JOINTS: No dislocation present. There is mild narrowing of the superior hip joint spaces and acetabular spurring, greater on the right. SI joints and pubic symphysis are unremarkable. SOFT TISSUE: Normal. IMPRESSION: [id number] degenerative changes of the hips. DATA REPOSITORY: RADIATION DOSE DELIVERED:
== END 2025-02-21 11:22 ==
LOC: DI 11:02
PROVIDERS: PCP Family Medicine; Visit Provider Family Medicine
DX: M16.0 Bilateral primary osteoarthritis of hip (principal)
CPT/HCPCS: 73521

== ENCOUNTER 2025-04-10 16:05 | Outpatient (REF) | payer BC, SELFPAY | END 2025-04-10 16:06 | disposition home or self-care (01) | LOC: LBN 16:05 | PROVIDERS: PCP Family Medicine; Visit Provider Physician Assistant | DX: L98.9 Disorder of the skin and subcutaneous tissue, unspecified (principal) | CPT/HCPCS: 87077; 87070; 87186; 87205 ==

== ENCOUNTER 2025-05-01 15:39 | Outpatient (CLI) | payer BC, SELFPAY ==
[2025-05-01 15:54] LABS: Abs Immature Grans 0.07 10^3/uL (0.0-0.06); HCT 47.7 % (40.0-50.0); HGB 16.4 g/dL (13.5-17.5); Immature Grans % 0.5 %; MCH 30.2 pg (27.0-33.0); MCHC 34.4 % (32.0-36.0); MCV 88 fL (80-95); MPV 13.3 fL (8.0-11.0); Platelet Count 219 10^3/uL (130-400); RBC 5.43 10^6/uL (4.36-5.78); RDW 13.2 % (11.8-14.1); RDW-SD 42.8 fL; WBC 12.95 10^3/uL (4.4-10.8)
[2025-05-01 16:55] LABS: TSH (W/Ref FT4) 1.56 uIU/mL (0.55-4.78)
[2025-05-01 17:31] LABS: Hemoglobin A1C 11.1 % (<5.7)
[2025-05-01 17:40] LABS: ALT 21 U/L (10-49); AST 21 U/L (<34); Albumin 4.0 g/dL (3.4-5.0); Alkaline Phosphatase 117 U/L (46-116); Anion Gap 10.3 mmol/L (3-11); BUN 17 mg/dL (9-23); Bilirubin, Total 0.60 mg/dL (0.2-1.2); CO2 26.6 mmol/L (20.0-31.0); Calcium 9.4 mg/dL (8.3-10.6); Chloride 94 mmol/L (98-107); Potassium 5.2 mmol/L (3.5-5.1); Sodium 131 mmol/L (136-145); Total Protein 6.8 g/dL (5.7-8.2)
[2025-05-01 18:27] LABS: Glucose 772 mg/dL (74-106)
== END 2025-05-01 15:40 | disposition home or self-care (01) ==
LOC: LBO 15:40
PROVIDERS: PCP Family Medicine; Visit Provider Nurse Practitioner Family
DX: R11.2 Nausea with vomiting, unspecified (principal); R19.7 Diarrhea, unspecified
CPT/HCPCS: 36415; 80053; 83036; 84443; 85025

== ENCOUNTER 2025-05-01 18:19 | Inpatient (IN) | payer BC, SELFPAY ==
[2025-05-01] VITALS (7 sets, daily range): BP systolic 112–171; BP diastolic 62–97; PULSE 84–97; RESP 12–20; TEMP 36.3–36.7; O2SAT 93–97
--- NOTE | 2025-05-01 19:00 | RT.EKG_ITS ---
APPROVED REPORT Exam: Resting ECG Reason for Exam: severe hyperglycemia Patient Location: E HR:88 bpm ECG Measurements Heart Rate 88 AXIS VT 199 P 66 QRSd 90 QRS -76 QT 359 T 40 QTc 434 Conclusion Sinus rhythm...normal P axis, V-rate 60- 99 LAD, consider left anterior fascicular block...axis(240,-40), S>R II III aVF
--- NOTE | 2025-05-01 19:08 | ED.GENADUL_ITS ---
Discharge Plan Disposition Patient Disposition: Home Condition: Stable Discharge Details Clinical Impression: Rhabdomyolysis, Acute hyperglycemia Primary Care Provider: Raffy Aguirre ED Provider: Dakotah Macias Home Meds and New Rx's Prescriptions: No Action methocarbamol 500 mg tablet 1,000 mg PO TID Qty: 30 0RF celecoxib 200 mg capsule 200 mg PO BID mupirocin 2 % ointment 1 applic topical TID Qty: 22 0RF lidocaine 5 % Adhesive Patch,Medicated 1 patch topical Q24H Qty: 10 0RF ibuprofen 200 mg tablet 600 mg PO TID Qty: 0 0RF Discharge Instructions Stand Alone Forms: Portal Information HPI General Date/Time Provider Initiated Documentation: 05/01/25 18:43 . HPI Narrative: 60 year-old male presents to ED today by POV/ambulating with a chief complaint of outpatient lab draw with glucose in 700s, reports recently having excessive thirst and peeing a lot, no prior diagnosis with diabetes with onset over the past weeks. Quality described as very thirsty, occasionally getting confused, no radiation to chest pain, shortness of breath, recent illness, abdominal pain, reports vomiting quite a few times days ago. Severity is described as severe for thirst. Palliating factors include nothing specific attempted. Provoking factors include nothing specific. Patient not anticoagulated. Related Data Home Medications Medication Instructions Recorded Confirmed ibuprofen 200 mg tablet 600 mg (3 x 200 mg) PO TID # 0 tabs 02/05/25 05/01/25 lidocaine 5 % topical patch 1 patch topical Q24H #10 e a 02/05/25 05/01/25 methocarbamol 500 mg tablet 1,000 mg (2 x 500 mg) PO T ID #30 02/14/25 05/01/25 tabs mupirocin 2 % topical ointment 1 applic topical TID #2 2 grams 04/10/25 05/01/25 celecoxib 200 mg capsule 200 mg PO BID 05/01/2505/01 Previous Rx's Medication Instructions Recorded ibuprofen 200 mg tablet 600 mg (3 x 200 mg) PO TID # 0 tabs 02/05/25 lidocaine 5 % topical patch 1 patch topical Q24H #10 e a 02/05/25 methocarbamol 500 mg tablet 1,000 mg (2 x 500 mg) PO T ID #30 02/14/25 tabs mupirocin 2 % topical ointment 1 applic topical TID #2 2 grams 04/10/25 Allergies Allergy/AdvReac Type Severity Reaction Status Date / Time codeine AdvReac Unknown from Verified 05/01/25 14:50 childhood General Stated Complaint: Diabetes AUGUST: 3 Review of Systems All systems reviewed & are unremarkable except as noted in HPI and below Exam Narrative Exam Narrative: GENERAL APPEARANCE: Well-nourished, non-toxic, awake and alert, atraumatic, mild acute distress. SKIN: Warm, pale, dry, intact, without rashes/lesions/ulcerations. HEAD: Normocephalic, atraumatic, normal hair distribution for gender/age. EYES: Normal conjunctiva, no exudates on lids/lashes. ENT: Nares patent, no circumoral cyanosis, no facial swelling, dry oral mucosa NECK: Supple, trachea midline, painless cervical ROM. LUNGS/CHEST: Lungs CTA bilaterally- no rhonchi/rales/wheezes diffusely, non- labored respirations, normal A/P diameter, symmetrical expansion, no chest wall deformity HEART (CV/PV): Regular rate and rhythm without murmur, no peripheral edema, no JVD. ABDOMEN: Soft, non-distended, no guarding, no tenderness. MSK: Normal ROM, no swelling/deformity to bilateral UEs or LEs, moving all extremities without weakness, no cyanosis, spine midline without tenderness, normal curvature. NEURO: Mental Status AAOx4 - alert to person, place, time, events No facial droop, no forehead involvement. Motor: No focal weakness - strength 5/5 in bilateral UEs and LEs, proximal and distal, symmetric. Sensory: sensation intact to light touch globally. Gait normal: patient ambulated without ataxia into ED room. PSYCH: euthymic, cooperative, pleasant, appropriate speech Course Vital Signs Vital signs: Vital Signs Temperature 36.7 C 05/01/25 18:24 Pulse 95 H 05/01/25 18:24 Respiratory Rate 20 05/01/25 18:24 Blood Pressure 158/97 H 05/01/25 18:24 Pulse Oximetry 97 05/01/25 18:24 Temperature 36.7 C 05/01/25 18:28 Pulse 95 H 05/01/25 18:28 Respiratory Rate 20 05/01/25 18:28 Blood Pressure 158/97 H 11/12/25 18:28 Blood Pressure Position Sitting 05/01/25 18:28 Pulse Oximetry 97 05/01/25 18:28 Oxygen Delivery Method Room Air 05/01/25 18:28 Oxygen Flow Rate 0 05/01/25 18:28 Medical Decision Making This dictation utilizes [id number] dictation software and may contain unedited grammatical errors. 60 year-old male presents to ED today by POV/ambulating with a chief complaint of outpatient lab draw with glucose in 700s, reports recently having excessive thirst and peeing a lot, no prior diagnosis with diabetes with onset over the past weeks. Quality described as very thirsty, occasionally getting confused, no radiation to chest pain, shortness of breath, recent illness, abdominal pain, reports vomiting quite a few times days ago. Severity is described as severe for thirst. Palliating factors include nothing specific attempted. Provoking factors include nothing specific. Patients' medical history: Hyperlipidemia, GERD, erythrocytosis. Family and social history: Later endorses crack cocaine use, daily tobacco use, regular alcohol use. Pertinent exam findings / vital signs include benign cardiopulmonary exam, no tachycardia, neuro intact, benign abdomen, lungs CTA. Differential / pathologies of concern include DKA, hyperglycemia, initial diagnosis diabetes mellitus, rhabdomyolysis, electrolyte abnormality. Diagnostic studies of: - CBC, CMP, lactate, VBG, magnesium, ammonia, CK, troponin, lipase, TSH, UA, UDS, EKG. - CBC shows leukocytosis of 13.39, nonspecific - pH is 7.39 - Lactate is 3.4 - CMP shows no abnormality of potassium, glucose 783 - Magnesium within normal limits - Ammonia negative - CK is elevated at 459 - Troponin negative with reliable onset - TSH within normal limits - Lipase within normal limits - UA shows glucose spilling without infection - UDS is positive for cocaine - EKG shows sinus rhythm at 88 bpm with P waves slightly prolonged MA interval followed by narrow complex QRS with normal axis, no peaked T waves, no signs of ischemia, normal QTc Interventions of: -IVF 1L NS. ED Course/Assessment/Plan: 60-year-old male presents with initial diagnosis of diabetes mellitus with glucose of 783 as well as rhabdomyolysis, has been using crack cocaine, VBG is reassuring as lactate is elevated at 3.4 likely from his hyperglycemia, I did present this patient with Dr Houston for admission which was accepted at 2049, as he likely needs insulin overnight to normalize his blood sugar and needs internal medicine consult to start his diabetes regimen, IV fluids for rhabdo while admitted. Disposition of Rhabdomyolysis, Acute Hyperglycemia. Patient verbalized understanding of the plan and return to ED criteria and engaged in shared decision making. Medical Records Medical records reviewed: Yes I reviewed the patient's medical records. Lab Data Lab results reviewed: Yes I reviewed the patient's lab results. Labs: Laboratory Tests Range/Units 05/01/25 05/01/25 19:33 19:44 WBC (4.4-10.8) 10^3/uL 13.39 H RBC (4.36-5.78) 10^6/uL 5.22 Hgb (13.5-17.5) g/dL 15.9 Hct (40.0-50.0) % 45.7 MCV (80-95) fL 88 MCH (27.0-33.0) pg 30.5 MCHC (32.0-36.0) % 34.8 RDW (11.8-14.1) % 13.1 Plt Count (130-400) 10^3/uL 188 MPV (8.0-11.0) fL 12.4 H Immature Gran % % 0.7 Neutrophils % % 73.9 Lymphocytes % % 14.3 Monocytes % % 6.9 Eosinophils % % 3.5 Basophils % % 0.7 Nucleated RBC % (0.0-0.3) % 0.0 Absolute Neutrophils (1.2-6.7) 10^3/uL 9.90 H Absolute Lymphocytes (1.2-3.4) 10^3/uL 1.91 Absolute Monocytes (0.1-0.8) 10^3/uL 0.92 H Absolute Eosinophils (0.0-0.7) 10^3/uL 0.47 Absolute Basophils (0.0-0.2) 10^3/uL 0.09 VBG pH (7.31-7.41) 7.39 VBG pCO2 (41-51) mmHg 41 VBG pO2 mmHg 48 VBG HCO3 (23-28) mmol/L 25 VBG Total CO2 (24-29) mmol/L 22 L VBG O2 Saturation % 85 VBG Base Excess (-2-3) mmol/L 0 VBG Lactate (<or=2.0) mmol/L 3.4 H* Sodium (136-145) mmol/L 128 L Potassium (3.5-5.1) mmol/L 4.8 Chloride (98-107) mmol/L 94 L Carbon Dioxide (20.0-31.0) mmol/L 23.7 Anion Gap (3-11) mmol/L 9.8 BUN (9-23) mg/dL 18 Creatinine (0.73-1.18) mg/dL 0.9 Est GFR (CKD-EPI 2020) (mL/min/1.73m2) 88.84 Glucose (74-106) mg/dL 783 H* Calcium (8.3-10.6) mg/dL 9.0 Magnesium (1.6-2.6) mg/dL 2.1 Total Bilirubin (0.2-1.2) mg/dL 0.60 AST (<34) U/L 19 ALT (10-49) U/L 20 Alkaline Phosphatase (46-116) U/L 115 Ammonia (11-32) umol/L 15 Creatine Kinase (46-171) U/L 459 H Troponin I (<54) ng/L 14 Total Protein (5.7-8.2) g/dL 6.9 Albumin (3.4-5.0) g/dL 3.9 Lipase (<53) U/L 51 TSH (0.55-4.78) uIU/mL 2.18 Urine Color (Yellow) Yellow Urine Clarity (Clear) Clear Urine pH (5-8) 5.5 Ur Specific [place] (1.005-1.025) <= 1.005 Urine Protein (Neg-Trace) mg/dL Negative Urine Ketones (Negative) mg/dL Negative Urine Blood (Negative) Trace-intact H Urine Nitrite (Negative) Negative Urine Bilirubin (Negative) Negative Urine Urobilinogen (Up to 0.2) mg/dL 0.2 Ur Leukocyte Esterase (Negative) Negative Urine RBC (0-2) HPF 5-10 H Urine WBC (0-5) HPF Negative Ur Epithelial Cells (Negative) HPF Rare Urine Crystals (Negative) HPF Negative Urine Bacteria (Negative) HPF Rare Urine Casts (Negative) LPF Negative Urine Mucus (Negative) Negative Ur Culture Indicated? No Urine Glucose (Negative) mg/dL >=1000 H Urine Opiates Screen (Negative) Negative Urine Methadone Screen (Negative) Negative Ur Barbiturates Screen (Negative) Negative Ur Tricyclics Screen (Negative) Negative Ur Amphetamines Screen (Negative) Negative U Benzodiazepines Scrn (Negative) Negative Urine Cocaine Screen (Negative) Positive A U Cannabinoids Screen (Negative) Negative PFSH All Active Problems (Updated 05/01/25 @ 20:53 by JADA Miranda) Acute hyperglycemia (Acute) Rhabdomyolysis (Acute) Perirectal abscess (Acute) HTN (hypertension) (Chronic) Drug use disorder (Chronic) Acute hyperglycemia (Acute) Nausea, vomiting and diarrhea (Acute) Bilateral hip pain (Acute) Anal fissure (Acute) Internal hemorrhoids (Acute) Sensorineural hearing loss of both ears (Acute) Tinnitus (Acute) Tobacco abuse (Acute) Erythrocytosis (Acute) Hyperlipidemia with target LDL less than 130 (Acute) Calculus of left kidney (Acute 07/21/17) Microscopic hematuria (Acute 07/27/17) 08/04/17; NEGATIVE CYSTOSCOPY;[facility] Reflux esophagitis (Acute) EGD 11/25/14 Surgical History BACK SURGERY 1999; [facility] Family History Mother No problems noted. Father No problems noted. Sister No problems noted. Brother No problems noted. Grandfather Heart disease Grandfather No problems noted. Grandmother No problems noted. Grandmother Diabetes Social History Smoking/Tobacco Use Status: Current every day Tobacco Type: cigarettes Smoking risk assessment performed?: Yes Alcohol Intake: never Drug use: Never Substance use type: does not use Current gender identity: female Do you feel safe in your relationship?: Yes
[2025-05-01 19:40] LABS: BE (Venous) 0 mmol/L (-2-3); HCO3 (Venous) 25 mmol/L (23-28); O2 Sat (Venous) 85 %; TCO2 (Venous) 22 mmol/L (24-29); pCO2 (Venous) 41 mmHg (41-51); pO2 (Venous) 48 mmHg
[2025-05-01 19:43] LABS: Abs Immature Grans 0.09 10^3/uL (0.0-0.06); HCT 45.7 % (40.0-50.0); HGB 15.9 g/dL (13.5-17.5); Immature Grans % 0.7 %; MCH 30.5 pg (27.0-33.0); MCHC 34.8 % (32.0-36.0); MCV 88 fL (80-95); MPV 12.4 fL (8.0-11.0); Platelet Count 188 10^3/uL (130-400); RBC 5.22 10^6/uL (4.36-5.78); RDW 13.1 % (11.8-14.1); RDW-SD 42.0 fL; WBC 13.39 10^3/uL (4.4-10.8)
[2025-05-01] MEDS: Normal Saline 1,000 ML 1000 ML IV (19:46)
[2025-05-01 19:54] LABS: Glucose >=1000 mg/dL (Negative)
[2025-05-01 19:59] LABS: Troponin I 14 ng/L (<54)
[2025-05-01 20:00] LABS: Creatine Kinase 459 U/L (46-171); Lipase 51 U/L (<53); Magnesium 2.1 mg/dL (1.6-2.6)
[2025-05-01 20:01] LABS: Ammonia 15 umol/L (11-32)
[2025-05-01 20:03] LABS: TSH (W/Ref FT4) 2.18 uIU/mL (0.55-4.78)
[2025-05-01 20:04] LABS: C & S Indicated? No; WBC Negative HPF (0-5)
[2025-05-01 20:12] LABS: Cannabinoids THC Negative (Negative)
[2025-05-01 20:14] LABS: ALT 20 U/L (10-49); AST 19 U/L (<34); Albumin 3.9 g/dL (3.4-5.0); Alkaline Phosphatase 115 U/L (46-116); Anion Gap 9.8 mmol/L (3-11); BUN 18 mg/dL (9-23); Bilirubin, Total 0.60 mg/dL (0.2-1.2); CO2 23.7 mmol/L (20.0-31.0); Calcium 9.0 mg/dL (8.3-10.6); Chloride 94 mmol/L (98-107); Glucose 783 mg/dL (74-106); Potassium 4.8 mmol/L (3.5-5.1); Sodium 128 mmol/L (136-145); Total Protein 6.9 g/dL (5.7-8.2)
--- NOTE | 2025-05-01 20:50 | W.PM.HP.N ---
Date of service: 05/01/25 Time of Service: 20:49 Assessment and Plan Assessment and plan (1) Acute hyperglycemia: Start date: 05/01/25 Status: Acute Assessment and plan: This is a 60-year-old gentleman with a history of recent events since January 2025 which may have prompted new onset of diabetes mellitus. He had the typical symptoms of polyuria and polydipsia along with weight loss especially over the last 3 to 4 weeks. Over the last couple days he has had nausea, vomiting and diarrhea. In late summer and early fall he did receive steroid injections and oral therapy for back and hip pain. He does have a slightly elevated serum lactate and elevated CPK but no musculoskeletal symptoms or history of trauma. He will be admitted to the [facility] with aggressive IV hydration to clear his lactic acidosis, treat his elevated CPK and to help with hyperglycemia with glucometers every hours and moderate sliding scale insulin coverage. Labs will be trended. Long-term he needs to have evaluation for safe treatment for his diabetes mellitus given his noncompliance with PCP follow-up and substance use disorder with no plans on stopping crack cocaine use which he uses as recreational. He is a full code. (2) Lactic acidosis due to diabetes mellitus: Start date: 05/01/25 Status: Acute Assessment and plan: This is associated with his recent onset of diabetes the patient have a 22 pound weight loss and extreme thirst as well as recent nausea, vomiting and diarrhea. This should clear with treatment of the hypoglycemia and aggressive IV hydration. (3) Rhabdomyolysis: Start date: 05/01/25 Status: Acute Assessment and plan: Most likely secondary to recent onset of diabetes with no history of trauma. This should clear with IV hydration. (4) Perirectal abscess: Start date: 04/10/25 Status: Acute Assessment and plan: Patient has been treated initially because of spontaneous drainage, I&D was not performed. He is scheduled to see a surgeon in 1 week to evaluate his residual fullness in the right perirectal area. It is not painful, erythematous or draining at this time. There is no indication for continued antibiotics though his WBC is slightly elevated, he is not having pain, erythema, fluctuance or fever. He denies painful bowel movements. (5) HTN (hypertension): Status: Acute Assessment and plan: Patient appeared to have an elevated blood pressure and pulse in the ED which resolved once admitted to the floor. Metoprolol was ordered but will be held for now. Long-term he should lose weight in a healthy fashion and also stop the use of crack cocaine. (6) Drug use disorder: Status: Chronic Assessment and plan: Patient does smoke crack cocaine with denying other drugs and is fearful of street drugs with unknown substances. Urine drug screen is consistent with his cocaine use and his blood pressure slightly high with tachycardia in the ED but this resolving before initiating oral therapy. He was counseled on the dangers of street drug use but appears to have no interest and change in behavior or outpatient counseling at this time. He does not even follow-up with his PCP. This should be rediscussed at discharge and he should be encouraged to follow-up with his PCP on this issue. He is high risk for misuse with his poor insight and avoidance behavior during discussion. No further drug screening was performed. History of Present Illness History of Present Illness Chief Complaint: High blood sugars on outpatient lab. Narrative: This is a 60-year-old male patient who seldomly sees his PCP and is chronically on medical therapy for arthritic symptoms and back pain with recent investigations by outpatient walk-in clinic and orthopedics. In late summer he was seen at the walk-in clinic for low back pain and hip pain with a diagnosis of most likely lumbar pain being made at that time. He was given a short course of oxycodone 5 mg x 2 prescriptions with review of the PDMP. When I discussed this with the patient he minimized this medical therapy and stated that he mostly is on Celebrex and a muscle relaxer. He was given a course of prednisone as well and at that time he did not have overt diabetes but did have outpatient labs with occasional glucoses above 110 up to early March 2025. Eventually he was diagnosed with hip pain with bilateral steroid hip injections about 1 week prior to presentation. On April 10, 2025 the patient did notice a right perirectal swelling which spontaneously drained and patient was seen as an outpatient with oral antibiotic therapy given. Recent visits to the outpatient clinic revealed a continued nontender and nondraining mass in the same right perirectal region with no further antibiotic therapy but patient is to see surgeon for possible excision or I&D within 1 week. Over the last 2 to 3 weeks the patient has been having increased thirst and increased frequency of urination with a 22 pound weight loss. Over the last 2 to 3 days the patient has been having some nausea, vomiting and diarrhea which may have prompted the outpatient lab. This lab did reveal only a slightly elevated WBC and glucose over 700 which prompted his presentation to the ED. In the ED he was evaluated for DKA and did have an elevated lactate, slightly low sodium which may be because of the high glucose. He also had a slightly elevated WBC and CPK with no evidence of recent trauma and no evidence of infection. He denies fever or respiratory symptoms. He does have his recent GI symptoms which are resolving. The patient admits smoking crack cocaine recreationally and had smoked pot in the past but no other illicit drug use. In the ED he did have a positive MAYANK for cocaine. He denies using IV or snorting devices. He does not drink alcohol. When I saw the patient he was eating a salad with protein and had no other complaints. He was given some IV fluid in the ED and this will be continued with admission but he would not be treated with a DKA or HHNC protocol at this time other than hydration because of his lactic acidosis. The patient presently has no nausea or vomiting and is eating well. He will be placed on MedSurg with frequent glucometer checks with sliding scale coverage until his glucose is better controlled and then reevaluate long-term treatment after hydration and control of his hyperglycemia. The j2ee android developer of this progression of diabetes mellitus may have been the recent steroid treatments orally and injectable as well as his perirectal abscess and most recent GI symptoms which appear viral. He is a full code. Review of Systems Narrative: 13 point review of systems otherwise unrevealing or stable. PFS All Active Problems (Updated 05/02/25 @ 08:20 by Lambert Houston) Lactic acidosis due to diabetes mellitus (Acute) Acute hyperglycemia (Acute) Rhabdomyolysis (Acute) Perirectal abscess (Acute) HTN (hypertension) (Acute) Drug use disorder (Chronic) Acute hyperglycemia (Acute) Nausea, vomiting and diarrhea (Acute) Bilateral hip pain (Acute) Anal fissure (Acute) Internal hemorrhoids (Acute) Sensorineural hearing loss of both ears (Acute) Tinnitus (Acute) Tobacco abuse (Acute) Erythrocytosis (Acute) Hyperlipidemia with target LDL less than 130 (Acute) Calculus of left kidney (Acute 07/21/17) Microscopic hematuria (Acute 07/27/17) 08/04/17; NEGATIVE CYSTOSCOPY;[facility] Reflux esophagitis (Acute) EGD 11/25/14 Surgical History BACK SURGERY 1999; [facility] Family History Mother No problems noted. Father No problems noted. Sister No problems noted. Brother No problems noted. Grandfather Heart disease Grandfather No problems noted. Grandmother No problems noted. Grandmother Diabetes Social History Smoking/Tobacco Use Status: Current every day Tobacco Type: cigarettes Smoking risk assessment performed?: Yes Alcohol Intake: never Drug use: Never Substance use type: does not use Housing: house Current gender identity: female Do you feel safe in your relationship?: Yes Meds Allergies and Home Medications Allergies Allergy/AdvReac Type Severity Reaction Status Date / Time codeine AdvReac Unknown from Verified 05/01/25 14:50 childhood Home Medications Medication Instructions Recorded Confirmed Type ibuprofen 200 mg tablet 600 mg (3 x 200 mg) PO TID #0 tabs 02/05/25 05/01/25 Rx lidocaine 5 % topical patch 1 patch topical Q24H #10 ea 02/05/25 05/01/25 Rx methocarbamol 500 mg tablet 1,000 mg (2 x 500 mg) PO TID #30 02/14/25 05/01/25 Rx tabs mupirocin 2 % topical ointment 1 applic topical TID #22 grams 04/10/25 05/01/25 Rx celecoxib 200 mg capsule 200 mg PO BID 05/01/25 05/01/25 History Exam Narrative Exam Narrative: General: Patient appears appropriate for age, alert and oriented x 3 and in no acute distress. HEENT: Normocephalic, eyes with pupils equal and reactive to light symmetrically, extraocular movement intact and sclera anicteric. Oropharynx with dry mucosa and poor dentition. Neck: Supple without JVD. Back: Stooped posture with loss of lordotic curve in the lumbar spine, decreased range of motion, no CVA tenderness. Lungs: Bronchovesicular breath sounds diffusely with no focalizing rales or rhonchi. Heart: Regular rate and rhythm with no appreciable murmurs or gallops. Abdomen: Obese contour, soft and nontender to palpation no palpable hepatosplenomegaly. Bowel sounds positive in all quadrants. No guarding or rebound. Genitalia/rectal: Exam deferred. (Patient states he did have a spontaneously draining right perirectal abscess which is consolidated not actively draining with plans to see surgery soon for possible excision and drainage, this is not tender and is status post treatment with oral antibiotics.) Extremities: No clubbing, cyanosis or grossly pitting edema. Peripheral pulses intact. Skin: Normal color, warm and dry. Neuro: Cranial nerves II through XII grossly intact, no focalized motor deficits and no tremor. Psych: Slightly agitated affect at times especially when discussing history of recent pain treatment and use of crack cocaine with some avoidance. Normal mood. No abnormal thought processes. Remote and recent memory intact. Results Labs 05/02/25 05:06 05/02/25 05:06 Labs: Laboratory Results - last 24 hr 05/01/25 05/01/25 19:33 19:44 WBC 13.39 H RBC 5.22 Hgb 15.9 Hct 45.7 MCV 88 MCH 30.5 MCHC 34.8 RDW 13.1 Plt Count 188 MPV 12.4 H Immature Gran % 0.7 Neutrophils % 73.9 Lymphocytes % 14.3 Monocytes % 6.9 Eosinophils % 3.5 Basophils % 0.7 Nucleated RBC % 0.0 Absolute Neutrophils 9.90 H Absolute Lymphocytes 1.91 Absolute Monocytes 0.92 H Absolute Eosinophils 0.47 Absolute Basophils 0.09 VBG pH 7.39 VBG pCO2 41 VBG pO2 48 VBG HCO3 25 VBG Total CO2 22 L VBG O2 Saturation 85 VBG Base Excess 0 VBG Lactate 3.4 H* Sodium 128 L Potassium 4.8 Chloride 94 L Carbon Dioxide 23.7 Anion Gap 9.8 BUN 18 Creatinine 0.9 Est GFR (CKD-EPI 2020) 88.84 Glucose 783 H* Calcium 9.0 Magnesium 2.1 Total Bilirubin 0.60 AST 19 ALT 20 Alkaline Phosphatase 115 Ammonia 15 Creatine Kinase 459 H Troponin I 14 Total Protein 6.9 Albumin 3.9 Lipase 51 TSH 2.18 Urine Color Yellow Urine Clarity Clear Urine pH 5.5 Ur Specific [place] <= 1.005 Urine Protein Negative Urine Ketones Negative Urine Blood Trace-intact H Urine Nitrite Negative Urine Bilirubin Negative Urine Urobilinogen 0.2 Ur Leukocyte Esterase Negative Urine RBC 5-10 H Urine WBC Negative Ur Epithelial Cells Rare Urine Crystals Negative Urine Bacteria Rare Urine Casts Negative Urine Mucus Negative Ur Culture Indicated? No Urine Glucose >=1000 H Urine Opiates Screen Negative Urine Methadone Screen Negative Ur Barbiturates Screen Negative Ur Tricyclics Screen Negative Ur Amphetamines Screen Negative U Benzodiazepines Scrn Negative Urine Cocaine Screen Positive A U Cannabinoids Screen Negative Last Vital Signs Temp 36.7 C 05/01/25 18:28 Pulse 95 H 05/01/25 18:28 Resp 20 05/01/25 18:28 BP 158/97 H 05/01/25 18:28 Pulse Ox 97 05/01/25 18:28 Time Spent Time spent with Patient: >75 minutes Time was spent: preparing to see the patient(eg.review tests), obtaining and/or reviewing separately otained hiistory, ordering medications,tests, procedures, indepentently interpreting results and counseling the patient
[2025-05-01 21:10] LABS: Troponin I 13 ng/L (<54)
[2025-05-01 21:53] LABS: COVID-19 PCR Negative (Negative); RSV PCR Negative (Negative)
[2025-05-02] VITALS (13 sets, daily range): BP systolic 122–148; BP diastolic 50–91; PULSE 76–93; RESP 13–22; TEMP 36.3–36.6; O2SAT 93–99
[2025-05-02] MEDS: Insulin Aspart 300 UNITS/3 ML PEN SC ×6 (00:14→21:21)
[2025-05-02 05:29] LABS: HCT 43.9 % (40.0-50.0); HGB 15.4 g/dL (13.5-17.5); MCH 30.1 pg (27.0-33.0); MCHC 35.1 % (32.0-36.0); MCV 86 fL (80-95); MPV 11.2 fL (8.0-11.0); Platelet Count 196 10^3/uL (130-400); RBC 5.12 10^6/uL (4.36-5.78); RDW 12.8 % (11.8-14.1); RDW-SD 39.8 fL; WBC 13.42 10^3/uL (4.4-10.8)
[2025-05-02 06:05] LABS: Magnesium 2.1 mg/dL (1.6-2.6)
[2025-05-02 06:20] LABS: ALT 18 U/L (10-49); AST 18 U/L (<34); Albumin 3.7 g/dL (3.4-5.0); Alkaline Phosphatase 94 U/L (46-116); Anion Gap 3.4 mmol/L (3-11); BUN 16 mg/dL (9-23); Bilirubin, Total 0.50 mg/dL (0.2-1.2); CO2 24.6 mmol/L (20.0-31.0); Calcium 8.3 mg/dL (8.3-10.6); Chloride 107 mmol/L (98-107); Glucose 321 mg/dL (74-106); Potassium 3.9 mmol/L (3.5-5.1); Sodium 135 mmol/L (136-145); Total Protein 6.5 g/dL (5.7-8.2)
[2025-05-02] MEDS: Normal Saline 1,000 ML 150 ML IV (06:50)
--- NOTE | 2025-05-02 07:54 | PDOC.CMIN ---
Date of service: 05/02/25 Time of Service: 07:54 Care Management Initial Assmt Initial Assessment Reason for Hospitalization: hyperglycemia Functional Status/Living Situation Patient Presentation: Darwin was sitting up in bed when CM met with him. He was polite but a bit guarded in interaction. Darwin lives in a single family home in [place] with his and [id number]. They had 5 children but one is . The 4 remaining children, 2 sons and 2 daughters, live locally; their 2 sons live in [place] and their daughters are in [facility]. Darwin works in the [employer] at [employer]. He has been there for about 15 or 16 years. He is independent at baseline and does not receive any community services. Darwin was admitted with a new diagnosis of diabetes with a blood sugar of 783. With treatment it has come down to 321. The provider is hopeful that Darwin may be able to manage glucose control with oral agents. The development educator (Scar) will see him later today and will likely apply a CGM. Town of Residence: [place] Resides with: Spouse (Twila) Natural Supports: family Employment Status: Employed ([employer]) Instrumental Activities of Daily Living (ADLs): Independent Medications Medication Management: No Issues/Barriers identified Physical Functioning/Mobility Assistive Device: none Advance Directives Advance Directives: Do you have an Advance Directive: N 06/27/14, 10:16 AD On File at [facility]: N 06/27/14, 10:16 Date Asked 05/01/25 05/01/25, 15:40 AD Date Reviewed COLST On File at [facility] COLST Date Scanned Code Status Resuscitation Status Full Code Portal Pt does not currently have a portal and education provided: Yes Insurance Coverage/Financial Issues Insurance: /BS Care Team Visit Care Team Role Provider Type Demetris Otto MD [place] [facility] STAFF PHYSICIAN Raffy Aguirre MD Primary Care Provider [facility] STAFF PHYSICIAN Bev Wadsworth RDN, [facility] Other Providers SUPERVISOR FISH HATCHERY Scar Ruiz RDN Other Providers SUPERVISOR FISH HATCHERY JADA Miranda Emergency Provider PHYSICIANS DENTAL APPLIANCE REPAIRER [place] Admit Provider NON-[facility] STAFF PHYSICIAN Attending Provider Discharge Potential Discharge Needs: PCP F/U Appt Anticipated Barriers to Discharge: None Identified Patient/Family Education Needs: Review discharge instructions, discuss Ask Me Three Transportation: Private vehicle Plan: Anticipate Darwin will be discharged home with no new services when medically cleared. He will follow up with his PCP and plan of care and transport with family. CM will follow and continmue to support discharge planning. Social Determinants of Health Screening Social Determinants of health last assessed in clinic: 05/02/25 Will the Patient Participate in the Screening?: Yes Do you worry about having a steady place to live?: no Problems where you live: no known problems In the past 12 months, have you had to go without electric, gas, oil or water in your home?: no 1. Within the past 12 months, we worried whether our food would run out before we got money to buy more.: Never true 2. Within the past 12 months, the food we bought just didn't last and we didn't have money to get more.: Never true Has lack of transportation kept you from medical appointments or from doing things needed for daily living?: no Has anyone in your life made you feel unsafe or unsupported?: no How hard is it for you to pay for the very basics like food, housing, medical care, and heating? Would you say it is:: Somewhat hard Do you want help finding or keeping work or a job?: I do not need or want help If for any reason you need help with day-to-day activities such as bathing, preparing meals, shopping, managing finances, etc., do you get the help you need?: I get all the help I need How often do you feel lonely or isolated from those around you?: Never Do you speak a language other than [place] at home?: No Does the patient want assistance with any of the above?: No Health Related Social Needs Health related social needs: problems related to housing/economic circumstances (Z59.89) Health related social needs details: Patient states getting somewhat difficult. PFSH All Active Problems (Updated 05/02/25 @ 08:20 by Lambert [place]) Lactic acidosis due to diabetes mellitus (Acute) Acute hyperglycemia (Acute) Rhabdomyolysis (Acute) Perirectal abscess (Acute) HTN (hypertension) (Acute) Drug use disorder (Chronic) Acute hyperglycemia (Acute) Nausea, vomiting and diarrhea (Acute) Bilateral hip pain (Acute) Anal fissure (Acute) Internal hemorrhoids (Acute) Sensorineural hearing loss of both ears (Acute) Tinnitus (Acute) Tobacco abuse (Acute) Erythrocytosis (Acute) Hyperlipidemia with target LDL less than 130 (Acute) Calculus of left kidney (Acute 07/21/17) Microscopic hematuria (Acute 07/27/17) 08/04/17; NEGATIVE CYSTOSCOPY;[facility] Reflux esophagitis (Acute) EGD 11/25/14 Surgical History BACK SURGERY 1999; [facility] Family History Mother No problems noted. Father No problems noted. Sister No problems noted. Brother No problems noted. Grandfather Heart disease Grandfather No problems noted. Grandmother No problems noted. Grandmother Diabetes Social History Smoking/Tobacco Use Status: Current every day Tobacco Type: cigarettes Smoking risk assessment performed?: Yes Alcohol Intake: never Drug use: Never Substance use type: does not use Housing: house Current gender identity: female Do you feel safe in your relationship?: Yes
[2025-05-02] MEDS: Celecoxib 200 MG CAP PO ×2 (08:31→21:17)
[2025-05-02 10:33] LABS: Creatine Kinase 213 U/L (46-171)
[2025-05-02] MEDS: Mylanta Suspension 30 ML CUP PO ×2 (11:44→16:27)
--- NOTE | 2025-05-02 14:20 | PHA.REVIEW2 ---
Pharmacy Admission Review Admission Clinical Review Admission Pharmacy Review: Lactic acidosis due to diabetes mellitus (Acute) Acute hyperglycemia (Acute) Rhabdomyolysis (Acute) Perirectal abscess (Acute) HTN (hypertension) (Acute) Acute hyperglycemia (Acute) codeine Adverse Reaction (Unknown, Verified 05/01/25 14:50) from childhood Resuscitation Status Full Code Height 5 ft 10 in Weight 113.7 kg Pharmacy Admission Review Renal Dosing Renal Dosing: BUN 16 mg/dL (9-23) 05/02/25 05:06 Creatinine 0.8 mg/dL (0.73-1.18) 05/02/25 05:06 Medications needing adjustments: Reviewed (cRcL=96; no adjustments needed) Anticoagulation Anticoagulation: Hgb 15.4 g/dL (13.5-17.5) 05/02/25 05:06 Hct 43.9 % (40.0-50.0) 05/02/25 05:06 Plt Count 196 10^3/uL (130-400) 05/02/25 05:06 Creatinine 0.8 mg/dL (0.73-1.18) 05/02/25 05:06 DVT Prophylaxis: Reviewed Medications: Enoxaparin Opiate Usage Evaluate Pain Scale/Pains Meds: N/A Relevant Labs Relevant Labs: Sodium 135 mmol/L (136-145) L 05/02/25 05:06 Potassium 3.9 mmol/L (3.5-5.1) 05/02/25 05:06 Chloride 107 mmol/L (98-107) 05/02/25 05:06 Magnesium 2.1 mg/dL (1.6-2.6) 05/02/25 05:06 Electrolytes, C-Reactive P, ESR: Reviewed (no intervention at this time) DM Control DM Control: Reviewed Insulin Dosing, Diabetic Medication: newly diagnosed DM type 2. Pt received 48 units insulin aspart since admission. Finger sticks trending down from 783 to 368 today. Cardiac Review Cardiac Review: Current EB=240/76; HR=88. Troponin I 13 ng/L (<54) 05/01/25 20:48 BP, HR, EF%: Reviewed QTc Review QTc: Reviewed (gal=276; no intervention needed) IV to PO Switch IV Medications: Reviewed Home Meds Home Med List reviewed: Reviewed Relevent Home Meds Not ordered & why?: all home meds restarted Current Meds Current Medication Order Review: Reviewed Pharmacy Antibiotic Review Comments: no antibiotics at this time
[2025-05-02 15:41] LABS: Hemoglobin A1C 11.2 % (<5.7)
--- NOTE | 2025-05-02 16:00 | W.PM.PROGNOT ---
Date of Service Date of service: 05/02/25 Time of Service: 08:00 Assessment and Plan Assessment and plan (1) Acute hyperglycemia: Start date: 05/01/25 Status: Acute Assessment and plan: A1C 11.2. Patient declines to start insulin at this time. Advised monthly PCP visits until A1C < 7 Will start on metformin with strong advise to see PCP on return from travel. (2) Lactic acidosis due to diabetes mellitus: Start date: 05/01/25 Status: Acute Assessment and plan: This is associated with his recent onset of diabetes the patient have a 22 pound weight loss and extreme thirst as well as recent nausea, vomiting and diarrhea. This should clear with treatment of the hypoglycemia and aggressive IV hydration. (3) Rhabdomyolysis: Start date: 05/01/25 Status: Acute Assessment and plan: Most likely secondary to recent onset of diabetes with no history of trauma. This should clear with IV hydration. (4) Perirectal abscess: Start date: 04/10/25 Status: Acute Assessment and plan: Patient has been treated initially because of spontaneous drainage, I&D was not performed. He is scheduled to see a surgeon in 1 week to evaluate his residual fullness in the right perirectal area. It is not painful, erythematous or draining at this time. There is no indication for continued antibiotics though his WBC is slightly elevated, he is not having pain, erythema, fluctuance or fever. He denies painful bowel movements. (5) HTN (hypertension): Status: Acute Assessment and plan: Patient appeared to have an elevated blood pressure and pulse in the ED which resolved once admitted to the floor. Metoprolol was ordered but will be held for now. Long-term he should lose weight in a healthy fashion and also stop the use of crack cocaine. (6) Drug use disorder: Status: Chronic Assessment and plan: Patient does smoke crack cocaine with denying other drugs and is fearful of street drugs with unknown substances. Urine drug screen is consistent with his cocaine use and his blood pressure slightly high with tachycardia in the ED but this resolving before initiating oral therapy. He was counseled on the dangers of street drug use but appears to have no interest and change in behavior or outpatient counseling at this time. He does not even follow-up with his PCP. This should be rediscussed at discharge and he should be encouraged to follow-up with his PCP on this issue. He is high risk for misuse with his poor insight and avoidance behavior during discussion. No further drug screening was performed. Subjective Subjective Interval history since last seen: Mr. Gallegos is comfortable in bed. He plans to leave town for 2 weeks after he sees surgery tomorrow at 10 am for a cyst on his buttock Exam Narrative Exam Narrative: General: This is a pleasant, disheveled man in no distress HEENT: Normocephalic, atraumatic CV: RRR Resp: CTAB Abd: soft, NTND MSK: voluntary motion x4 Neuro: awake, alert, no focal deficits Objective Last Vital Signs Temp 36.6 C 05/02/25 14:03 Pulse 88 05/02/25 14:03 Resp 18 05/02/25 14:03 BP 129/76 05/02/25 14:03 Pulse Ox 93 05/02/25 14:03 Laboratory Results - last 24 hr 05/01/25 05/01/25 05/01/25 19:33 19:44 20:48 WBC 13.39 H RBC 5.22 Hgb 15.9 Hct 45.7 MCV 88 MCH 30.5 MCHC 34.8 RDW 13.1 Plt Count 188 MPV 12.4 H Immature Gran % 0.7 Neutrophils % 73.9 Lymphocytes % 14.3 Monocytes % 6.9 Eosinophils % 3.5 Basophils % 0.7 Nucleated RBC % 0.0 Absolute Neutrophils 9.90 H Absolute Lymphocytes 1.91 Absolute Monocytes 0.92 H Absolute Eosinophils 0.47 Absolute Basophils 0.09 VBG pH 7.39 VBG pCO2 41 VBG pO2 48 VBG HCO3 25 VBG Total CO2 22 L VBG O2 Saturation 85 VBG Base Excess 0 VBG Lactate 3.4 H* Sodium 128 L Potassium 4.8 Chloride 94 L Carbon Dioxide 23.7 Anion Gap 9.8 BUN 18 Creatinine 0.9 Est GFR (CKD-EPI 2020) 88.84 Glucose 783 H* Hemoglobin A1c Calcium 9.0 Magnesium 2.1 Total Bilirubin 0.60 AST 19 ALT 20 Alkaline Phosphatase 115 Ammonia 15 Creatine Kinase 459 H Troponin I 14 13 Total Protein 6.9 Albumin 3.9 Lipase 51 TSH 2.18 Urine Color Yellow Urine Clarity Clear Urine pH 5.5 Ur Specific [place] <= 1.005 Urine Protein Negative Urine Ketones Negative Urine Blood Trace-intact H Urine Nitrite Negative Urine Bilirubin Negative Urine Urobilinogen 0.2 Ur Leukocyte Esterase Negative Urine RBC 5-10 H Urine WBC Negative Ur Epithelial Cells Rare Urine Crystals Negative Urine Bacteria Rare Urine Casts Negative Urine Mucus Negative Ur Culture Indicated? No Urine Glucose >=1000 H Urine Opiates Screen Negative Urine Methadone Screen Negative Ur Barbiturates Screen Negative Ur Tricyclics Screen Negative Ur Amphetamines Screen Negative U Benzodiazepines Scrn Negative Urine Cocaine Screen Positive A U Cannabinoids Screen Negative COVID-19 Source SARS-CoV-2 (PCR) Influenza Type A (PCR) Influenza Type B (PCR) RSV (PCR) 05/01/25 05/02/25 05/02/25 21:10 01:24 05:06 WBC 13.42 H RBC 5.12 Hgb 15.4 Hct 43.9 MCV 86 MCH 30.1 MCHC 35.1 RDW 12.8 Plt Count 196 MPV 11.2 H Immature Gran % Neutrophils % Lymphocytes % Monocytes % Eosinophils % Basophils % Nucleated RBC % Absolute Neutrophils Absolute Lymphocytes Absolute Monocytes Absolute Eosinophils Absolute Basophils VBG pH VBG pCO2 VBG pO2 VBG HCO3 VBG Total CO2 VBG O2 Saturation VBG Base Excess VBG Lactate Sodium 135 L Potassium 3.9 Chloride 107 Carbon Dioxide 24.6 Anion Gap 3.4 BUN 16 Creatinine 0.8 Est GFR (CKD-EPI 2020) 95.12 Glucose Cancelled 321 H Hemoglobin A1c Calcium 8.3 Magnesium 2.1 Total Bilirubin 0.50 AST 18 ALT 18 Alkaline Phosphatase 94 Ammonia Creatine Kinase Troponin I Total Protein 6.5 Albumin 3.7 Lipase TSH Urine Color Urine Clarity Urine pH Ur Specific [place] Urine Protein Urine Ketones Urine Blood Urine Nitrite Urine Bilirubin Urine Urobilinogen Ur Leukocyte Esterase Urine RBC Urine WBC Ur Epithelial Cells Urine Crystals Urine Bacteria Urine Casts Urine Mucus Ur Culture Indicated? Urine Glucose Urine Opiates Screen Urine Methadone Screen Ur Barbiturates Screen Ur Tricyclics Screen Ur Amphetamines Screen U Benzodiazepines Scrn Urine Cocaine Screen U Cannabinoids Screen COVID-19 Source Nasopharynx SARS-CoV-2 (PCR) Negative Influenza Type A (PCR) Negative Influenza Type B (PCR) Negative RSV (PCR) Negative 05/02/25 10:01 WBC RBC Hgb Hct MCV MCH MCHC RDW Plt Count MPV Immature Gran % Neutrophils % Lymphocytes % Monocytes % Eosinophils % Basophils % Nucleated RBC % Absolute Neutrophils Absolute Lymphocytes Absolute Monocytes Absolute Eosinophils Absolute Basophils VBG pH VBG pCO2 VBG pO2 VBG HCO3 VBG Total CO2 VBG O2 Saturation VBG Base Excess VBG Lactate 1.5 Sodium Potassium Chloride Carbon Dioxide Anion Gap BUN Creatinine Est GFR (CKD-EPI 2020) Glucose Hemoglobin A1c 11.2 H Calcium Magnesium Total Bilirubin AST ALT Alkaline Phosphatase Ammonia Creatine Kinase 213 H Troponin I Total Protein Albumin Lipase TSH Urine Color Urine Clarity Urine pH Ur Specific [place] Urine Protein Urine Ketones Urine Blood Urine Nitrite Urine Bilirubin Urine Urobilinogen Ur Leukocyte Esterase Urine RBC Urine WBC Ur Epithelial Cells Urine Crystals Urine Bacteria Urine Casts Urine Mucus Ur Culture Indicated? Urine Glucose Urine Opiates Screen Urine Methadone Screen Ur Barbiturates Screen Ur Tricyclics Screen Ur Amphetamines Screen U Benzodiazepines Scrn Urine Cocaine Screen U Cannabinoids Screen COVID-19 Source SARS-CoV-2 (PCR) Influenza Type A (PCR) Influenza Type B (PCR) RSV (PCR) Time Spent with Patient Time Spent with Patient: 25-34 minutes Time was spent: preparing to see the patient(eg.review tests), obtaining and/or reviewing separately otained hiistory, ordering medications,tests, procedures, referring, communicating with other health gericare aide, indepentently interpreting results, counseling the patient and care coordination
--- NOTE | 2025-05-02 18:12 | W.PC.ACHO ---
Registration Status: ADM IN Primary Language: Preferred Language: Italian ED Information & Data Chief Complaint Diabetes 05/01/25 19:09 Triage Note PT reports persistent dry 05/01/25 18:24 mouth, thirst, weakness, sleepiness, general unwell. PT contacted by provider who requested that the PT go to ED for treatment of Hyperglycemia (Last Reviewed 05/02/25 @ 08:03 by Lambert Houston) BACK SURGERY Most Recent Vital Signs Temperature 36.6 C 05/02/25 14:03 Temperature Source Temporal Artery Scan 05/02/25 14:03 Pulse 83 05/02/25 15:08 Pulse 90 05/02/25 15:08 Respiratory Rate 16 05/02/25 15:08 Respiratory Effort Normal 05/01/25 22:20 Respiratory Depth Normal 05/01/25 22:20 Respiratory Pattern Normal 05/01/25 22:20 Blood Pressure 148/75 H 05/02/25 15:08 Blood Pressure Mean 94 05/02/25 15:08 Blood Pressure Position Sitting 05/01/25 18:28 Pulse Oximetry 93 05/02/25 14:03 Oxygen Delivery Method Room Air 05/02/25 14:03 Oxygen Flow Rate 0 05/02/25 14:03 Pain Level 2 05/01/25 21:12 Comment PT complaining of heartburn, nurse notified. 05/01/25 21:12 Allergies codeine Adverse Reaction (Unknown, Verified 05/01/25 14:50) from childhood Active Medications Generic Name Dose Route Start Last Admin Trade Name Freq PRN Reason Stop Dose Admin Al Hydrox/Mg Hydrox/Simethicone 30 ml 05/01/25 22:12 05/02/25 16:27 Mylanta Suspension 30 Ml Cup PO 30 ml Q2H PRN PRN Administration Celecoxib 200 mg 05/02/25 08:30 05/02/25 08:31 Celecoxib 200 Mg Cap PO 200 mg BID TU Administration Enoxaparin Sodium 40 mg 05/02/25 08:30 05/02/25 08:31 Enoxaparin 40 Mg/0.4 Ml Syr SC Not Given DAILY TU Insulin Aspart 0 units 05/02/25 00:00 05/02/25 15:57 Insulin Aspart 300 Units/3 Ml Pen SC 14 units Q4H TU Administration Protocol Lidocaine 1 patch 05/01/25 22:12 05/01/25 22:53 Lidocaine 5% Patch TP Not Given Q24H TU Methocarbamol 1,000 mg 05/02/25 08:30 05/02/25 12:33 Methocarbamol 500 Mg Tab PO Not Given TID TU Miscellaneous 1 each 05/02/25 10:00 05/02/25 08:40 Patch Removal TP Not Given Q24H TU Mupirocin 0 gm 05/02/25 08:30 05/02/25 12:33 Mupirocin 2% Oint. 22 Gm Tube TP Not Given TID TU IV IV Catheter Type [Left Wrist] Saline Lock IV Catheter Gauge [Left Wrist] 20 Diagnostics 05/02/25 05/02/25 05/02/25 Range/Units 10:01 05:06 01:24 WBC 13.42 H (4.4-10.8) 10^3/uL RBC 5.12 (4.36-5.78) 10^6/uL Hgb 15.4 (13.5-17.5) g/dL Hct 43.9 (40.0-50.0) % MCV 86 (80-95) fL MCH 30.1 (27.0-33.0) pg MCHC 35.1 (32.0-36.0) % RDW 12.8 (11.8-14.1) % Plt Count 196 (130-400) 10^3/uL MPV 11.2 H (8.0-11.0) fL Immature Gran % % Neutrophils % % Lymphocytes % % Monocytes % % Eosinophils % % Basophils % % Nucleated RBC % (0.0-0.3) % Absolute Neutrophils (1.2-6.7) 10^3/uL Absolute Lymphocytes (1.2-3.4) 10^3/uL Absolute Monocytes (0.1-0.8) 10^3/uL Absolute Eosinophils (0.0-0.7) 10^3/uL Absolute Basophils (0.0-0.2) 10^3/uL VBG pH (7.31-7.41) VBG pCO2 (41-51) mmHg VBG pO2 mmHg VBG HCO3 (23-28) mmol/L VBG Total CO2 (24-29) mmol/L VBG O2 Saturation % VBG Base Excess (-2-3) mmol/L VBG Lactate 1.5 (<or=2.0) mmol/L Sodium 135 L (136-145) mmol/L Potassium 3.9 (3.5-5.1) mmol/L Chloride 107 (98-107) mmol/L Carbon Dioxide 24.6 (20.0-31.0) mmol/L Anion Gap 3.4 (3-11) mmol/L BUN 16 (9-23) mg/dL Creatinine 0.8 (0.73-1.18) mg/dL Est GFR (CKD-EPI 2020) 95.12 (mL/min/1.73m2) Glucose 321 H Cancelled (74-106) mg/dL Hemoglobin A1c 11.2 H (<5.7) % Calcium 8.3 (8.3-10.6) mg/dL Magnesium 2.1 (1.6-2.6) mg/dL Total Bilirubin 0.50 (0.2-1.2) mg/dL AST 18 (<34) U/L ALT 18 (10-49) U/L Alkaline Phosphatase 94 (46-116) U/L Ammonia (11-32) umol/L Creatine Kinase 213 H (46-171) U/L Troponin I (<54) ng/L Total Protein 6.5 (5.7-8.2) g/dL Albumin 3.7 (3.4-5.0) g/dL Lipase (<53) U/L TSH (0.55-4.78) uIU/mL Urine Color (Yellow) Urine Clarity (Clear) Urine pH (5-8) Ur Specific [place] (1.005-1.025) Urine Protein (Neg-Trace) mg/dL Urine Ketones (Negative) mg/dL Urine Blood (Negative) Urine Nitrite (Negative) Urine Bilirubin (Negative) Urine Urobilinogen (Up to 0.2) mg/dL Ur Leukocyte Esterase (Negative) Urine RBC (0-2) HPF Urine WBC (0-5) HPF Ur Epithelial Cells (Negative) HPF Urine Crystals (Negative) HPF Urine Bacteria (Negative) HPF Urine Casts (Negative) LPF Urine Mucus (Negative) Ur Culture Indicated? Urine Glucose (Negative) mg/dL Urine Opiates Screen (Negative) Urine Methadone Screen (Negative) Ur Barbiturates Screen (Negative) Ur Tricyclics Screen (Negative) Ur Amphetamines Screen (Negative) U Benzodiazepines Scrn (Negative) Urine Cocaine Screen (Negative) U Cannabinoids Screen (Negative) COVID-19 Source SARS-CoV-2 (PCR) (Negative) Influenza Type A (PCR) (Negative) Influenza Type B (PCR) (Negative) RSV (PCR) (Negative) 05/01/25 05/01/25 05/01/25 Range/Units 21:10 20:48 19:44 WBC (4.4-10.8) 10^3/uL RBC (4.36-5.78) 10^6/uL Hgb (13.5-17.5) g/dL Hct (40.0-50.0) % MCV (80-95) fL MCH (27.0-33.0) pg MCHC (32.0-36.0) % RDW (11.8-14.1) % Plt Count (130-400) 10^3/uL MPV (8.0-11.0) fL Immature Gran % % Neutrophils % % Lymphocytes % % Monocytes % % Eosinophils % % Basophils % % Nucleated RBC % (0.0-0.3) % Absolute Neutrophils (1.2-6.7) 10^3/uL Absolute Lymphocytes (1.2-3.4) 10^3/uL Absolute Monocytes (0.1-0.8) 10^3/uL Absolute Eosinophils (0.0-0.7) 10^3/uL Absolute Basophils (0.0-0.2) 10^3/uL VBG pH (7.31-7.41) VBG pCO2 (41-51) mmHg VBG pO2 mmHg VBG HCO3 (23-28) mmol/L VBG Total CO2 (24-29) mmol/L VBG O2 Saturation % VBG Base Excess (-2-3) mmol/L VBG Lactate (<or=2.0) mmol/L Sodium (136-145) mmol/L Potassium (3.5-5.1) mmol/L Chloride (98-107) mmol/L Carbon Dioxide (20.0-31.0) mmol/L Anion Gap (3-11) mmol/L BUN (9-23) mg/dL Creatinine (0.73-1.18) mg/dL Est GFR (CKD-EPI 2020) (mL/min/1.73m2) Glucose (74-106) mg/dL Hemoglobin A1c (<5.7) % Calcium (8.3-10.6) mg/dL Magnesium (1.6-2.6) mg/dL Total Bilirubin (0.2-1.2) mg/dL AST (<34) U/L ALT (10-49) U/L Alkaline Phosphatase (46-116) U/L Ammonia (11-32) umol/L Creatine Kinase (46-171) U/L Troponin I 13 (<54) ng/L Total Protein (5.7-8.2) g/dL Albumin (3.4-5.0) g/dL Lipase (<53) U/L TSH (0.55-4.78) uIU/mL Urine Color Yellow (Yellow) Urine Clarity Clear (Clear) Urine pH 5.5 (5-8) Ur Specific [place] <= 1.005 (1.005-1.025) Urine Protein Negative (Neg-Trace) mg/dL Urine Ketones Negative (Negative) mg/dL Urine Blood Trace-intact H (Negative) Urine Nitrite Negative (Negative) Urine Bilirubin Negative (Negative) Urine Urobilinogen 0.2 (Up to 0.2) mg/dL Ur Leukocyte Esterase Negative (Negative) Urine RBC 5-10 H (0-2) HPF Urine WBC Negative (0-5) HPF Ur Epithelial Cells Rare (Negative) HPF Urine Crystals Negative (Negative) HPF Urine Bacteria Rare (Negative) HPF Urine Casts Negative (Negative) LPF Urine Mucus Negative (Negative) Ur Culture Indicated? No Urine Glucose >=1000 H (Negative) mg/dL Urine Opiates Screen Negative (Negative) Urine Methadone Screen Negative (Negative) Ur Barbiturates Screen Negative (Negative) Ur Tricyclics Screen Negative (Negative) Ur Amphetamines Screen Negative (Negative) U Benzodiazepines Scrn Negative (Negative) Urine Cocaine Screen Positive A (Negative) U Cannabinoids Screen Negative (Negative) COVID-19 Source Nasopharynx SARS-CoV-2 (PCR) Negative (Negative) Influenza Type A (PCR) Negative (Negative) Influenza Type B (PCR) Negative (Negative) RSV (PCR) Negative (Negative) 05/01/25 Range/Units 19:33 WBC 13.39 H (4.4-10.8) 10^3/uL RBC 5.22 (4.36-5.78) 10^6/uL Hgb 15.9 (13.5-17.5) g/dL Hct 45.7 (40.0-50.0) % MCV 88 (80-95) fL MCH 30.5 (27.0-33.0) pg MCHC 34.8 (32.0-36.0) % RDW 13.1 (11.8-14.1) % Plt Count 188 (130-400) 10^3/uL MPV 12.4 H (8.0-11.0) fL Immature Gran % 0.7 % Neutrophils % 73.9 % Lymphocytes % 14.3 % Monocytes % 6.9 % Eosinophils % 3.5 % Basophils % 0.7 % Nucleated RBC % 0.0 (0.0-0.3) % Absolute Neutrophils 9.90 H (1.2-6.7) 10^3/uL Absolute Lymphocytes 1.91 (1.2-3.4) 10^3/uL Absolute Monocytes 0.92 H (0.1-0.8) 10^3/uL Absolute Eosinophils 0.47 (0.0-0.7) 10^3/uL Absolute Basophils 0.09 (0.0-0.2) 10^3/uL VBG pH 7.39 (7.31-7.41) VBG pCO2 41 (41-51) mmHg VBG pO2 48 mmHg VBG HCO3 25 (23-28) mmol/L VBG Total CO2 22 L (24-29) mmol/L VBG O2 Saturation 85 % VBG Base Excess 0 (-2-3) mmol/L VBG Lactate 3.4 H* (<or=2.0) mmol/L Sodium 128 L (136-145) mmol/L Potassium 4.8 (3.5-5.1) mmol/L Chloride 94 L (98-107) mmol/L Carbon Dioxide 23.7 (20.0-31.0) mmol/L Anion Gap 9.8 (3-11) mmol/L BUN 18 (9-23) mg/dL Creatinine 0.9 (0.73-1.18) mg/dL Est GFR (CKD-EPI 2020) 88.84 (mL/min/1.73m2) Glucose 783 H* (74-106) mg/dL Hemoglobin A1c (<5.7) % Calcium 9.0 (8.3-10.6) mg/dL Magnesium 2.1 (1.6-2.6) mg/dL Total Bilirubin 0.60 (0.2-1.2) mg/dL AST 19 (<34) U/L ALT 20 (10-49) U/L Alkaline Phosphatase 115 (46-116) U/L Ammonia 15 (11-32) umol/L Creatine Kinase 459 H (46-171) U/L Troponin I 14 (<54) ng/L Total Protein 6.9 (5.7-8.2) g/dL Albumin 3.9 (3.4-5.0) g/dL Lipase 51 (<53) U/L TSH 2.18 (0.55-4.78) uIU/mL Urine Color (Yellow) Urine Clarity (Clear) Urine pH (5-8) Ur Specific [place] (1.005-1.025) Urine Protein (Neg-Trace) mg/dL Urine Ketones (Negative) mg/dL Urine Blood (Negative) Urine Nitrite (Negative) Urine Bilirubin (Negative) Urine Urobilinogen (Up to 0.2) mg/dL Ur Leukocyte Esterase (Negative) Urine RBC (0-2) HPF Urine WBC (0-5) HPF Ur Epithelial Cells (Negative) HPF Urine Crystals (Negative) HPF Urine Bacteria (Negative) HPF Urine Casts (Negative) LPF Urine Mucus (Negative) Ur Culture Indicated? Urine Glucose (Negative) mg/dL Urine Opiates Screen (Negative) Urine Methadone Screen (Negative) Ur Barbiturates Screen (Negative) Ur Tricyclics Screen (Negative) Ur Amphetamines Screen (Negative) U Benzodiazepines Scrn (Negative) Urine Cocaine Screen (Negative) U Cannabinoids Screen (Negative) COVID-19 Source SARS-CoV-2 (PCR) (Negative) Influenza Type A (PCR) (Negative) Influenza Type B (PCR) (Negative) RSV (PCR) (Negative) [id number] Documentation Fingerstick Glucose Start: 05/01/25 21:09 Freq: Status: Complete Protocol: Activity Type Activity Date Activity User E-sign Co-sign Detail Recorded Client Recorded Date Recorded By Document 05/01/25 21:08 YAREDG DAEMON(5) [id number] 05/01/25 21:09 BKG DAEMON(6) Fingerstick Glucose Start: 05/01/25 22:12 Freq: Q4H Status: Active Protocol: Activity Type Activity Date Activity User E-sign Co-sign Detail Recorded Client Recorded Date Recorded By Document 05/02/25 15:52 JANIE DAJARED(7) [id number] 05/02/25 15:54 BKIleana DASTACEYON(8) Intake and Output - 24 Hour Total 05/01/25 18:19 thru 05/02/25 15:00 Intake Total 2383 Output Total 1400 Balance 983 Weight 113.7 kg Intake: IV 2000 Oral 383 Output: Urine 1400 Other: Urine Color Pale Yellow Urine Appearance Clear Urine Odor Normal Comment Has voided throughout the day- unknown amount in the [facility] Falls Risk Assessment History of Falls No History 05/01/25 22:20 Contributing Factors No Factors 05/01/25 22:20 Ambulatory Aids Independent 05/01/25 22:20 Tubes/Lines None 05/01/25 22:20 Gait Evaluation No gait disturbance 05/01/25 22:20 Cognition No cognitive impairment 05/01/25 22:20 Fall Total Score 0 05/01/25 22:20 Level of Risk Standard/Low Risk 05/01/25 22:20 Problems (Last Reviewed 05/02/25 @ 08:03 by Lambert Houston) Lactic acidosis due to diabetes mellitus (Acute) Acute hyperglycemia (Acute) Rhabdomyolysis (Acute) Perirectal abscess (Acute) HTN (hypertension) (Acute) Drug use disorder (Chronic) Acute hyperglycemia (Acute) Attestation Statement: By documenting the first initial, last name, and credentials of the reporting nurse below, both parties acknowledge that all relevant information regarding the patient handoff has been communicated, and that all questions have been addressed to ensure continuity and safety of care. Additional Patient Information/Comments: All questions answered. Going to room 217 from 219 in ICU Report Received From: report received from Radha RN at [id number]
[2025-05-03 00:09] VITALS: BP 124/80; PULSE 72; RESP 16; TEMP 36.6; O2SAT 96
[2025-05-03] MEDS: Insulin Aspart 300 UNITS/3 ML PEN SC ×4 (00:33→12:25)
[2025-05-03 04:01] VITALS: BP 136/82; PULSE 72; RESP 16; TEMP 36; O2SAT 97
[2025-05-03 05:40] LABS: HCT 41.1 % (40.0-50.0); HGB 14.5 g/dL (13.5-17.5); MCH 31.0 pg (27.0-33.0); MCHC 35.3 % (32.0-36.0); MCV 88 fL (80-95); MPV 11.3 fL (8.0-11.0); Platelet Count 175 10^3/uL (130-400); RBC 4.67 10^6/uL (4.36-5.78); RDW 13.0 % (11.8-14.1); RDW-SD 41.9 fL; WBC 8.75 10^3/uL (4.4-10.8)
[2025-05-03 06:02] LABS: Magnesium 2.2 mg/dL (1.6-2.6)
[2025-05-03 06:09] LABS: ALT 18 U/L (10-49); AST 17 U/L (<34); Albumin 3.3 g/dL (3.4-5.0); Alkaline Phosphatase 79 U/L (46-116); Anion Gap 7.5 mmol/L (3-11); BUN 15 mg/dL (9-23); Bilirubin, Total 0.40 mg/dL (0.2-1.2); CO2 25.5 mmol/L (20.0-31.0); Calcium 8.1 mg/dL (8.3-10.6); Chloride 107 mmol/L (98-107); Glucose 232 mg/dL (74-106); Potassium 3.8 mmol/L (3.5-5.1); Sodium 140 mmol/L (136-145); Total Protein 5.8 g/dL (5.7-8.2)
[2025-05-03 07:36] VITALS: BP 127/84; PULSE 78; RESP 16; TEMP 36.8; O2SAT 97
--- NOTE | 2025-05-03 07:49 | DSE_ITS ---
Date of service: 05/03/25 Time of Service: 08:00 DS: Diagnosis Discharge Diagnosis (1) Acute hyperglycemia: Status: Resolved (2) Lactic acidosis due to diabetes mellitus: Status: Resolved (3) Rhabdomyolysis: Status: Resolved (4) Perirectal abscess: Status: Acute (5) HTN (hypertension): Status: Acute (6) Drug use disorder: Status: Chronic Discharge Plan Disposition Patient Disposition: Home Condition: Improving Discharge Details Reason For Visit: Acute Hyperglycemia Admit Date/Time: 05/01/25 20:59 Admit Provider: Lambert Houston Attending Provider: Lambert Houston Primary Care Provider: Raffy Aguirre Hospital Course Hospital Course: Darwin Gallegos is a 60 year old man presenting May 01 with lab finding of serum glucose > 700 and symptoms consistent with new diabetes diagnosis. He was found to have hyperosmolar hyperglycemia without evidence of DKA, and did not require an insulin drip. A1C is 11.2. Patient reports that he will continue using crack cocaine. He is able to start insulin and will be started on a 70/30 regimen. He is advised to see a primary care physician monthly until his A1C is under 7, and that he needs to be on medication for the rest of his life; insulin treatment is indicated and recommended whether or not he accepts it. He has had guidance from our solid waste truck driver and certified adapted physical educator. He is being discharged on insulin and metformin with encouragement to see a PCP as soon as he is able. Home Meds and New Rx's Prescriptions: New metformin 500 mg tablet 500 mg PO BIDWMEAL Qty: 180 0RF Rx Instructions: Take 500 mg by mouth twice per day. If tolerated without nausea/vomiting, increase dose to 1000 mg by mouth twice per day. See primary care physician for monitoring once per month. Humulin 70/30 U-100 KwikPen 100 unit/mL (70-30) insulin pen 24 unit subcut BID Qty: 15 6RF Rx Instructions: Inject 32 units at breakfast. Inject 16 units at dinner. Skip one injection if blood glucose is < 70. Continued methocarbamol 500 mg tablet 1,000 mg PO TID Qty: 30 0RF celecoxib 200 mg capsule 200 mg PO BID mupirocin 2 % ointment 1 applic topical TID Qty: 22 0RF lidocaine 5 % Adhesive Patch,Medicated 1 patch topical Q24H Qty: 10 0RF ibuprofen 200 mg tablet 600 mg PO TID Qty: 0 0RF Discharge Instructions Instructions: The ABCs of diabetes, Hemoglobin A1C tests, Diabetes and diet, Traveling With Diabetes Stand Alone Forms: Portal Information, Nursing Discharge Form Referrals: Raffy Aguirre MD [Primary Care Provider, Medicine] Referral Note: PCP office will give you a call to set up a follow up appointment. If you don't hear from them, please give them a call. Activity:: Activity as Tolerated Equipment/Supplies:: Blood Glucose Monitor Diet:: As Tolerated Discharge Orders Discharge Orders: Discharge Order (Routine); Ordered 05/03/25 Ordered By: Demetris Otto Discharge Data Discharge Date/Time-TO BE ENTERED AT DEPARTURE: 05/03/25 14:55 DS: Summary Time Spent with Patient providing and/or coordinating discharge services: Greater than 30 minutes Status at Discharge Functional status at discharge: independent ambulation Overall status at discharge: patient is progressing back to baseline Mental Status: mental status grossly normal Speech and Movement: speech and movement normal Mood: congruent mood Affect: normal affect Quality:SDOH Health Related Social Needs: Health related social needs house/econ circumstance Health related social needs details Patient states ge tting somewhat difficult. Health related social needs details: Patient states getting somewhat difficult. Exam Narrative Exam Narrative: General: This is a pleasant, disheveled man in no distress HEENT: Normocephalic, atraumatic CV: RRR Resp: CTAB Abd: soft, NTND MSK: voluntary motion x4 Neuro: awake, alert, no focal deficits Psych Mental Status: mental status grossly normal Speech and Movement: speech and movement normal Mood: congruent mood Affect: normal affect DS: Data Vitals/I&O Vitals and I&O: Vital Signs Temperature 36.8 C 05/03/25 07:36 Temperature Source Temporal Artery Scan 05/03/25 07:36 Pulse 78 05/03/25 07:36 Pulse 80 05/02/25 18:00 Respiratory Rate 16 05/03/25 07:36 Respiratory Effort Normal 05/01/25 22:20 Respiratory Depth Normal 05/01/25 22:20 Respiratory Pattern Normal 05/01/25 22:20 Blood Pressure 127/84 05/03/25 07:36 Blood Pressure Mean 98 05/03/25 07:36 Blood Pressure Position Sitting 05/01/25 18:28 Pulse Oximetry 97 05/03/25 07:36 Oxygen Delivery Method Room Air 05/03/25 07:36 Oxygen Flow Rate 0 05/03/25 07:36 Pain Level 0 05/03/25 04:01 Comment PT complaining of heartburn, nurse notified. 05/01/25 21:12 Intake & Output 05/02/25 05/02/25 05/03/25 11:59 23:59 11:59 Intake Total 163 / 2883 2720 / 2883 Output Total 500 / 1400 900 / 1400 Balance -337 / 1483 1820 / 1483 Weight 113.7 kg 118.7 kg Intake: IV 1999 Oral 163 / 883 720 / 883 Output: Urine 500 / 1400 900 / 1400 Other: Urine Color Yellow Yellow Yellow Urine Appearance Clear Clear Urine Odor Normal Normal Normal Comment Has voided throughout the day- unknown amount in the toliet Pt voids an immeasurable amount ind. into the toilet. Data Completed and Pending Pending Labs at Discharge: 05/01/25 05/01/25 05/01/25 19:33 19:44 20:48 WBC 13.39 H RBC 5.22 Hgb 15.9 Hct 45.7 MCV 88 MCH 30.5 MCHC 34.8 RDW 13.1 Plt Count 188 MPV 12.4 H Immature Gran % 0.7 Neutrophils % 73.9 Lymphocytes % 14.3 Monocytes % 6.9 Eosinophils % 3.5 Basophils % 0.7 Nucleated RBC % 0.0 Absolute Neutrophils 9.90 H Absolute Lymphocytes 1.91 Absolute Monocytes 0.92 H Absolute Eosinophils 0.47 Absolute Basophils 0.09 VBG pH 7.39 VBG pCO2 41 VBG pO2 48 VBG HCO3 25 VBG Total CO2 22 L VBG O2 Saturation 85 VBG Base Excess 0 VBG Lactate 3.4 H* Sodium 128 L Potassium 4.8 Chloride 94 L Carbon Dioxide 23.7 Anion Gap 9.8 BUN 18 Creatinine 0.9 Est GFR (CKD-EPI 2020) 88.84 Glucose 783 H* Hemoglobin A1c Calcium 9.0 Magnesium 2.1 Total Bilirubin 0.60 AST 19 ALT 20 Alkaline Phosphatase 115 Ammonia 15 Creatine Kinase 459 H Troponin I 14 13 Total Protein 6.9 Albumin 3.9 Lipase 51 TSH 2.18 Urine Color Yellow Urine Clarity Clear Urine pH 5.5 Ur Specific [place] <= 1.005 Urine Protein Negative Urine Ketones Negative Urine Blood Trace-intact H Urine Nitrite Negative Urine Bilirubin Negative Urine Urobilinogen 0.2 Ur Leukocyte Esterase Negative Urine RBC 5-10 H Urine WBC Negative Ur Epithelial Cells Rare Urine Crystals Negative Urine Bacteria Rare Urine Casts Negative Urine Mucus Negative Ur Culture Indicated? No Urine Glucose >=1000 H Urine Opiates Screen Negative Urine Methadone Screen Negative Ur Barbiturates Screen Negative Ur Tricyclics Screen Negative Ur Amphetamines Screen Negative U Benzodiazepines Scrn Negative Urine Cocaine Screen Positive A U Cannabinoids Screen Negative COVID-19 Source SARS-CoV-2 (PCR) Influenza Type A (PCR) Influenza Type B (PCR) RSV (PCR) 05/01/25 05/02/25 05/02/25 21:10 01:24 05:06 WBC 13.42 H RBC 5.12 Hgb 15.4 Hct 43.9 MCV 86 MCH 30.1 MCHC 35.1 RDW 12.8 Plt Count 196 MPV 11.2 H Immature Gran % Neutrophils % Lymphocytes % Monocytes % Eosinophils % Basophils % Nucleated RBC % Absolute Neutrophils Absolute Lymphocytes Absolute Monocytes Absolute Eosinophils Absolute Basophils VBG pH VBG pCO2 VBG pO2 VBG HCO3 VBG Total CO2 VBG O2 Saturation VBG Base Excess VBG Lactate Sodium 135 L Potassium 3.9 Chloride 107 Carbon Dioxide 24.6 Anion Gap 3.4 BUN 16 Creatinine 0.8 Est GFR (CKD-EPI 2020) 95.12 Glucose Cancelled 321 H Hemoglobin A1c Calcium 8.3 Magnesium 2.1 Total Bilirubin 0.50 AST 18 ALT 18 Alkaline Phosphatase 94 Ammonia Creatine Kinase Troponin I Total Protein 6.5 Albumin 3.7 Lipase TSH Urine Color Urine Clarity Urine pH Ur Specific [place] Urine Protein Urine Ketones Urine Blood Urine Nitrite Urine Bilirubin Urine Urobilinogen Ur Leukocyte Esterase Urine RBC Urine WBC Ur Epithelial Cells Urine Crystals Urine Bacteria Urine Casts Urine Mucus Ur Culture Indicated? Urine Glucose Urine Opiates Screen Urine Methadone Screen Ur Barbiturates Screen Ur Tricyclics Screen Ur Amphetamines Screen U Benzodiazepines Scrn Urine Cocaine Screen U Cannabinoids Screen COVID-19 Source Nasopharynx SARS-CoV-2 (PCR) Negative Influenza Type A (PCR) Negative Influenza Type B (PCR) Negative RSV (PCR) Negative 05/02/25 05/03/25 10:01 04:30 WBC 8.75 RBC 4.67 Hgb 14.5 Hct 41.1 MCV 88 MCH 31.0 MCHC 35.3 RDW 13.0 Plt Count 175 MPV 11.3 H Immature Gran % Neutrophils % Lymphocytes % Monocytes % Eosinophils % Basophils % Nucleated RBC % Absolute Neutrophils Absolute Lymphocytes Absolute Monocytes Absolute Eosinophils Absolute Basophils VBG pH VBG pCO2 VBG pO2 VBG HCO3 VBG Total CO2 VBG O2 Saturation VBG Base Excess VBG Lactate 1.5 Sodium 140 Potassium 3.8 Chloride 107 Carbon Dioxide 25.5 Anion Gap 7.5 BUN 15 Creatinine 0.7 L Est GFR (CKD-EPI 2020) 114.17 Glucose 232 H Hemoglobin A1c 11.2 H Calcium 8.1 L Magnesium 2.2 Total Bilirubin 0.40 AST 17 ALT 18 Alkaline Phosphatase 79 Ammonia Creatine Kinase 213 H Troponin I Total Protein 5.8 Albumin 3.3 L Lipase TSH Urine Color Urine Clarity Urine pH Ur Specific [place] Urine Protein Urine Ketones Urine Blood Urine Nitrite Urine Bilirubin Urine Urobilinogen Ur Leukocyte Esterase Urine RBC Urine WBC Ur Epithelial Cells Urine Crystals Urine Bacteria Urine Casts Urine Mucus Ur Culture Indicated? Urine Glucose Urine Opiates Screen Urine Methadone Screen Ur Barbiturates Screen Ur Tricyclics Screen Ur Amphetamines Screen U Benzodiazepines Scrn Urine Cocaine Screen U Cannabinoids Screen COVID-19 Source SARS-CoV-2 (PCR) Influenza Type A (PCR) Influenza Type B (PCR) RSV (PCR) PFSH All Active Problems (Updated 05/04/25 @ 00:01 by JANIE HERNÁNDEZ) Uncontrolled diabetes mellitus with hyperglycemia (Acute) Perirectal abscess (Acute) HTN (hypertension) (Acute) Drug use disorder (Chronic) Nausea, vomiting and diarrhea (Acute) Bilateral hip pain (Acute) Anal fissure (Acute) Internal hemorrhoids (Acute) Sensorineural hearing loss of both ears (Acute) Tinnitus (Acute) Tobacco abuse (Acute) Erythrocytosis (Acute) Hyperlipidemia with target LDL less than 130 (Acute) Calculus of left kidney (Acute 07/21/17) Microscopic hematuria (Acute 07/27/17) 08/04/17; NEGATIVE CYSTOSCOPY;[facility] Reflux esophagitis (Acute) EGD 11/25/14 Surgical History BACK SURGERY 1999; [facility] Family History Mother No problems noted. Father No problems noted. Sister No problems noted. Brother No problems noted. Grandfather Heart disease Grandfather No problems noted. Grandmother No problems noted. Grandmother Diabetes Social History Smoking/Tobacco Use Status: Current every day Tobacco Type: cigarettes Smoking risk assessment performed?: Yes Alcohol Intake: never Drug use: Never Substance use type: does not use Housing: house Current gender identity: female Do you feel safe in your relationship?: Yes Time Spent with Patient Time Spent with Patient: <45 minutes Time was spent: preparing to see the patient(eg.review tests), obtaining and/or reviewing separately otained hiistory, ordering medications,tests, procedures, referring, communicating with other health healthcare business analyst, indepentently interpreting results, counseling the patient and care coordination
--- NOTE | 2025-05-03 08:09 | W.NUTRFU ---
Date of service: 05/03/25 Nutrition Note NOTE: Rec'd consult request re: diabetes education/mgt. Tried to visit with Darwin in ICU yesterday (05/02) but was sleeping and did not attempt to wake.
--- NOTE | 2025-05-03 08:58 | CMDISCH_ITS ---
Date of service: 05/03/25 Time of Service: 08:58 LACE Index Scoring Tool Questions: Length of Stay (in days): 2 Was the patient admitted via the E.D.?: Yes Comorbidities: Diabetes w/o Complication E.D. Visits: 2 Answers: Total Score: 8 Risk of Readmission: Low Risk Care Management Discharge Plan Reason for Hospitalization: hyperglycemia Discharge Plan: Darwin will be discharged home with no new services. He will follow up with his PCP and plan of care and transport with family. Patient/Family Education Needs: Review discharge instructions, limitations, medications, diet, glucose control, follow up plan and discuss Ask Me Three SDOH Health Related Social Needs: Health related social needs house/econ circumstance Health related social needs details Patient states ge tting somewhat difficult. Health related social needs details: Patient states getting somewhat difficult.
[2025-05-03] MEDS: Celecoxib 200 MG CAP PO (09:26)
[2025-05-03] MEDS: metFORMIN 500 MG TAB PO (09:27)
--- NOTE | 2025-05-03 09:38 | SCONE_ITS ---
Date of service: 05/03/25 Time of Service: 09:38 Assessment and Plan Assessment and plan (1) Uncontrolled diabetes mellitus with hyperglycemia: Status: Acute Assessment and plan: 60-year-old man with a healing abscess of the right buttock/gluteal area. I do not think this is a perianal or perirectal abscess although it is possible this could be a large perirectal draining sinus tract and/or fistula. My best guess is that this is simply a pustule, like the other ones present throughout his skin all over, that progressed into an abscess because of his hyperglycemic situation impairing his immune system. Right now it is completely healed over and not bothering him. There is nothing further to do or investigate. It may recur and I advised him of this. Most importantly, his blood sugar needs to get under control which the medical team is doing a great job of. Then split his immune system can get back on track, and probably this will not be an issue any further. Explained all this to him in careful detail and he understands. No follow-up needed. He can be scheduled for an outpatient colonoscopy with a referral from his PCP. That would be for colorectal cancer screening purposes and unrelated to the diabetes and abscess issue. History of Present Illness Narrative: 60 yo man is admitted to the hospital because of having blood sugar of 783 a couple of days ago. He is now newly–diagnosed with diabetes. He is a known drug user. For the last 3 or 4 weeks he has been having some issues around his buttocks. He reports he has had an abscess form on 2 separate occasions in this location. It has drained twice on its own. He reports he had a colonoscopy 10 years ago that was normal. He is due for another 1. He denies family history of colon cancer. Right now the issue near his anal area is completely normal. He actually has an appointment scheduled outpatient with me in the office later today. Unfortunately, he is here hospitalized. There is no pain or ongoing discharge at this time. [facility] All Active Problems (Updated 05/03/25 @ 07:46 by Demetris Otto MD) Uncontrolled diabetes mellitus with hyperglycemia (Acute) Lactic acidosis due to diabetes mellitus (Acute) Acute hyperglycemia (Acute) Rhabdomyolysis (Acute) Perirectal abscess (Acute) HTN (hypertension) (Acute) Drug use disorder (Chronic) Acute hyperglycemia (Acute) Nausea, vomiting and diarrhea (Acute) Bilateral hip pain (Acute) Anal fissure (Acute) Internal hemorrhoids (Acute) Sensorineural hearing loss of both ears (Acute) Tinnitus (Acute) Tobacco abuse (Acute) Erythrocytosis (Acute) Hyperlipidemia with target LDL less than 130 (Acute) Calculus of left kidney (Acute 07/21/17) Microscopic hematuria (Acute 07/27/17) 08/04/17; NEGATIVE CYSTOSCOPY;[facility] Reflux esophagitis (Acute) EGD 11/25/14 Surgical History BACK [facility]GERY 1999[email or web address] Family History Mother No problems noted. Father No problems noted. Sister No problems noted. Brother No problems noted. Grandfather Heart disease Grandfather No problems noted. Grandmother No problems noted. Grandmother Diabetes Social History Smoking/Tobacco Use Status: Current every day Tobacco Type: cigarettes Smoking risk assessment performed?: Yes Alcohol Intake: never Drug use: Never Substance use type: does not use Housing: house Current gender identity: female Do you feel safe in your relationship?: Yes Exam Narrative Exam Narrative: Gen: Appropriately nourished, overweight, non-toxic, comfortable and interactive Neuro: Alert and oriented x3 Psych: Good mood and affect. Good insight and understanding into condition. Skin: He has many small pustules and healing–lesions all over his arms, abdomen, legs Chest: Non-labored breathing, no wheezing, no visible shortness of breath. Heart: Regular Perianal exam: Patient has lateral decubitus positioning and chief executive is present. Patient gave verbal consent for examination. The perianal region itself is normal. About 5 or 6 cm out lateral on his right buttock is a 1-2 mm scar consistent with the location he identifies where the abscess was draining. It is nowhere near the anus. There is no erythema or tenderness there any longer. No palpable induration. Examining it does not bother him. Results Last Vital Signs Temp 98.2 F 05/03/25 07:36 Pulse 78 05/03/25 07:36 Resp 16 05/03/25 07:36 BP 127/84 11/14/25 07:36 Pulse Ox 97 05/03/25 07:36 Labs 05/03/25 04:30 05/03/25 04:30 Labs: Laboratory Results - last 24 hr 05/02/25 05/03/25 10:01 04:30 WBC 8.75 RBC 4.67 Hgb 14.5 Hct 41.1 MCV 88 MCH 31.0 MCHC 35.3 RDW 13.0 Plt Count 175 MPV 11.3 H VBG Lactate 1.5 Sodium 140 Potassium 3.8 Chloride 107 Carbon Dioxide 25.5 Anion Gap 7.5 BUN 15 Creatinine 0.7 L Est GFR (CKD-EPI 2020) 114.17 Glucose 232 H Hemoglobin A1c 11.2 H Calcium 8.1 L Magnesium 2.2 Total Bilirubin 0.40 AST 17 ALT 18 Alkaline Phosphatase 79 Creatine Kinase 213 H Total Protein 5.8 Albumin 3.3 L
== END 2025-05-03 14:55 | disposition home or self-care (01) | DRG 638 ==
LOC: ER 20:53 → ICU 22:14 → MS 05-02 18:09
PROVIDERS: Admitting Provider Family Medicine; Emergency Provider Physician Assistant; PCP Family Medicine; Responsible Provider Family Medicine; Visit Provider Family Medicine
DX: E11.10 Type 2 diabetes mellitus with ketoacidosis without coma (principal); K61.1 Rectal abscess; M62.82 Rhabdomyolysis; I10 Essential (primary) hypertension; F17.210 Nicotine dependence, cigarettes, uncomplicated; K21.00 Gastro-esophageal reflux disease with esophagitis, without bleeding; E78.5 Hyperlipidemia, unspecified; H90.3 Sensorineural hearing loss, bilateral; F14.90 Cocaine use, unspecified, uncomplicated; Z59.89 Other problems related to housing and economic circumstances
CPT/HCPCS: 00123; 36415; 36416; 80053; 80307; 82550; 82805; 82947; 82962; 83690; 85027; 87637; 93005; 96360; 99285; 81003; 81015; 82140; 83036; 83605; 83735; 84443; 84484; 85025; 93010; 99223; 99232; 99239; J1815